=== PATIENT | male | born 1965 | race Caucasian/White ===

== ENCOUNTER 2023-11-21 07:01 | Emergency (ER) | payer BC, SELFPAY ==
[2023-11-21] VITALS (7 sets, daily range): BP systolic 127–154; BP diastolic 91–104; BMI 29.3
--- NOTE | 2023-11-21 07:32 | ED.GENMED ---
History of Present Illness
General
Chief Complaint: Alcohol Problem
Source: patient
Exam Limitations: none
Time Seen by Provider: 11/21/23 07:18
Nursing documentation reviewed up to this point in time: agreed with
Travel History
Have you had any contact with someone who has COVID-19?: No
Do you have any symptoms of coronavirus? Fever > 100 degrees, chills, cough, shortness of breath, sore throat, loss of taste or smell, muscle aches, or headache?: No
History of Present Illness
History of Present Illness:
Patient is a 57-year-old male who presents to the ER for evaluation. Patient reports he is coming to the ER for help. He admits to feeling very depressed anxious and reports he has been drinking alcohol every day. He started drinking alcohol
yesterday morning and believes he stopped around 2:[address] did drive himself to the hospital. He presents tearful anxious. He denies any suicidal thoughts presently. He is coming to the ER for help. He does have a history of hypertension
diabetes however has stopped taking his medication. He denies any history of withdrawal seizures in the past.
Past History
Past History
ED Past Medical History: Hypercholesterolemia and NIDDM
ED Past Surgical History: None
Social History
Tobacco: Former smoker
Alcohol: Former
Personal: Single
Living: alone
Review of Systems
Review of Systems
Allergies reviewed?: Yes
All Other Systems: ROS reviewed and negative except as documented in HPI and ROS
Constitutional: Reports no symptoms
Respiratory: Reports no symptoms
Cardiac: Reports no symptoms
ABD/GI: Reports nausea; Denies vomiting or diarrhea
: Reports no symptoms
Musculoskeletal: Reports no symptoms
Skin: Reports no symptoms
Neurological: Reports other (no seizures ); Denies dizzy, headache, weakness or numbness
Hematologic/Lymphatic: Reports no symptoms
Psychiatric: Reports depression and anxiety; Denies suicidal
Phy Exam
General Physical Exam
General Presentation: no apparent distress
General age: appears stated age
General Skin: warm and dry
General Habitus: normal
General Mental: anxious and tearful
General Hydration: dry mucous membranes
Cardiovascular Exam
Cardiovascular Exam: tachycardia
Pulmonary Exam
Pulmonary Exam: lungs clear and no respiratory distress
Neurological Exam
Neurological Exam: alert and oriented x3
Musculoskeletal Exam
Musculoskeletal Exam: full ROM
Skin Exam
Skin Exam: normal color and warm/dry
Psychiatric Exam
Psychiatric Exam: anxious
Scores
Withdrawal Assessment of Alcohol
Withdrawal Assessment Completed?: Not applicable
Course
Orders/Labs/Results
Orders:
Orders
11/21/23 07:48
Lorazepam [Ativan] 1 mg IV NOW STA
11/21/23 07:50
Alcohol Urgent
CMP [Comprehensive Metabolic Panel] Urgent
Complete Blood Count/With Diff Urgent
0.9% Sodium Chloride 1000 ml [Nss] 1,000 ml IV BOLUS
Ondansetron Injectable [Zofran] 4 mg IV NOW STA
11/21/23 08:50
Crisis Consult Urgent
Reason for Consult: depression /alcohol problem
Abnormal Lab Results
11/21/23
07:50
MCH 32.8 H pg
(27.0-31.0)
Neutrophils % 39.5 L %
(42.2-75.2)
Monocytes % 11.7 H %
(1.7-9.3)
Creatinine 0.6 L mg/dL
(0.7-1.3)
Glucose 224 H mg/dl
(70-99)
Alkaline Phosphatase 207 H U/L
(38-126)
11/21/23 07:50
11/21/23 07:50
Vital Signs
Initial and Last Documented VS:
Initial Vital Signs
Temp Pulse Resp BP Pulse Ox
98.0 F 121 18 140/104 98
11/21/23 07:11 11/21/23 07:11 11/21/23 07:11 11/21/23 07:11 11/21/23 07:11
Last Documented Vital Signs
Temp Pulse Resp BP Pulse Ox
98.4 F 108 20 143/98 100
11/21/23 11:47 11/21/23 11:47 11/21/23 11:47 11/21/23 11:47 11/21/23 11:47
Healthcare Customer Service consulted with Physician
Healthcare Customer Service consulted with physician?: Yes
Name of Physician Consulted: Esme
MDM/Problems Addressed
Differential Diagnosis Includes:
Not limited to anxiety depression alcohol use disorder, withdrawal
MDM/Problems Addressed:
Patient is a 49-year-old male who presented to the ER for evaluation. Patient requesting help for alcohol use. He drinks daily. He feels depressed and anxious but denies any suicidal thoughts. No prior history of withdrawal seizures. He
presents awake alert tearful anxious mildly tachycardic on arrival. Patient was given Ativan, fluids. Patient denies any recent fevers illness. He is afebrile here with a normal white count stable hemoglobin.
Blood sugar minimally elevated to 24. He was given fluids. He has a known diabetic but stopped his medication. He has normal kidney function normal sodium potassium. Alk phosphatase is elevated will need outpatient follow-up. To review this
with patient.
Alcohol level 153. Patient spoke with [id number] and agreeable to inpatient treatment
11:47: Patient discharged to go directly to inpatient alcohol rehab facility. Patient calm stable in no acute distress feeling better, HR decreased to 108 prior to discharge
*Pulse Oximetry
Patient hypoxic: no
*Critical Care Note
Total Time (30-74mins, 75-104mins- exclusive of procedures): Not Applicable
ED Attending Note
-
Portions of this chart may have been created with voice recognition software.� Occasional wrong word or��sound alike� substitutions may have occurred due to the inherent limitations of voice recognition software.
Discharge Plan
Departure
Patient Disposition: Home (Routine Discharge)
Date of Disposition: 11/21/23
Time of Disposition: 09:58
Patient with high blood pressure during this ER visit?: Yes
Covid-19: Not Applicable
Discharge Problem:
Alcohol use disorder
Instructions: Alcohol Use Disorder (DC), BLOOD PRESSURE
Prescriptions:
No Action
[id number] [Cortisporin] 10 ML solution
4 drp otic (ear) TID Qty: 10 0RF
Rx Instructions:
to the affected ear
levofloxacin 500 MG tablet
500 mg PO DAILY 7 Days 0RF
prednisone 20 mg tablet
40 mg PO DAILY Qty: 8 0RF
Referrals:
Duran Beth MD [Family Provider] -
Activity Restrictions/Additional Instructions:
You will be going directly to alcohol detox placement.
As discussed your labs are reviewed your sugar is minimally elevated you will need to be restarted on your diabetic medication and your alkaline phosphatase is elevated here in the ER this will need to be rechecked by your family doctor in the next
several days
Return if any worsening of symptoms.
Interventions
Interventions:
*Risk Screen - Suicide Last Done: 11/21/23 07:29
*General Assessment Last Done: 11/21/23 07:29
*Neglect/Abuse Screening Last Done: 11/21/23 07:29
ED- Fall Risk Assessment Last Done: 11/21/23 07:29
*ED COVID-19 Vaccine History Last Done: 11/21/23 07:11
*Nursing Disposition Last Done: 11/21/23 11:47
ED- Neurological Assessment Last Done: 11/21/23 07:29
ED-Psychological Assessment Last Done: 11/21/23 07:48
Discharge Date and Time
Discharge Date/Time: 11/21/23 11:45
Print Language: CROATIAN
[2023-11-21] MEDS: ATIVAN 1 MG IV (07:54)
[2023-11-21] MEDS: ZOFRAN 4 MG IV (07:54)
[2023-11-21] MEDS: NSS 1000 IV (07:55)
[2023-11-21 07:57] LABS: % Basophils 1.3 % (0-2); % Eosinophils 1.3 % (0-6); % Immature Granulocytes 0.2 % (0-0.5); % Monocytes 11.7 % (1.7-9.3); % Neutrophils 39.5 % (42.2-75.2); Absolute Basophils 0.1 10^3/uL (0-0.2); Absolute Eosinophils 0.1 10^3/uL (0-0.7); Absolute Lymphocytes 2.2 10^3/uL (1.2-3.4); Absolute Monocytes 0.6 10^3/uL (0.1-0.6); Absolute Neutrophils 1.9 10^3/uL (1.4-6.5); Hemoglobin 16.6 g/dL (13.0-18.0); Mean Corp Hgb Conc. 36.1 g/dL (33.0-37.0); Mean Corpuscular Hgb 32.8 pg (27.0-31.0); Mean Corpuscular Volume 90.9 fL (80.0-94.0); Mean Platelet Volume 8.6 fL (7.4-10.4); Nucleated Red Blood Cells % 0 % (-); Platelet Count 230 10^3/uL (130-400); Red Blood Cell Count 5.06 10^6/uL (4.70-6.10); Red Cell Dist. Width 14.1 % (11.5-14.5); White Blood Cell Count 4.8 10^3/uL (4.8-10.8)
[2023-11-21 08:09] LABS: ALT (SGPT) 21 U/L (0-50); AST (SGOT) 36 U/L (17-59); Albumin 4.2 g/dl (3.5-5.0); Alcohol 153 mg/dl; Alkaline Phosphatase 207 U/L (38-126); Blood Urea Nitrogen 10 mg/dl (9-20); Calcium 9.1 mg/dl (8.4-10.2); Carbon Dioxide 22 mmol/L (22-30); Chloride 99 mmol/L (98-107); Glucose 224 mg/dl (70-99); Potassium 4.1 mmol/L (3.5-5.1); Sodium 136 mmol/L (135-145); Total Protein 7.7 g/dl (6.3-8.2); eGFR > 60.00
--- NOTE | 2023-11-21 11:47 | EDRN ---
Reviewed discharge instructions with patient. Verbalized understanding. Ambulated to lobby with steady gait.
== END 2023-11-21 11:45 | disposition home or self-care (01) ==
LOC: EMR 07:01
PROVIDERS: EMERGENCY PHYSICIAN Emergency Medicine; FAMILY PHYSICIAN Family Medicine
DX: F10.10 Alcohol abuse, uncomplicated (principal); I10 Essential (primary) hypertension; Z87.891 Personal history of nicotine dependence; E11.9 Type 2 diabetes mellitus without complications
CPT/HCPCS: 99284; 96374; 96375; 96361; 80053; 82077; 85025

== ENCOUNTER 2023-12-21 21:07 | Inpatient (IN) | payer SELFPAY ==
[2023-12-21] VITALS (15 sets, daily range): BP systolic 130–153; BP diastolic 81–98; BMI 31.0; BMI 30.2
[2023-12-21 17:55] LABS: % Basophils 0.7 % (0-2); % Eosinophils 0.7 % (0-6); % Immature Granulocytes 1.7 % (0-0.5); % Lymphocytes 19.7 % (20.5-51.1); % Monocytes 11.3 % (1.7-9.3); % Neutrophils 65.9 % (42.2-75.2); Absolute Basophils 0.1 10^3/uL (0-0.2); Absolute Eosinophils 0.1 10^3/uL (0-0.7); Absolute Immature Granulocytes 0.2 10^3/uL (0-0.05); Absolute Lymphocytes 2.2 10^3/uL (1.2-3.4); Absolute Monocytes 1.3 10^3/uL (0.1-0.6); Absolute Neutrophils 7.4 10^3/uL (1.4-6.5); Hematocrit 45.7 % (39.0-52.0); Hemoglobin 16.9 g/dL (13.0-18.0); Mean Corpuscular Hgb 32.7 pg (27.0-31.0); Mean Corpuscular Volume 88.4 fL (80.0-94.0); Mean Platelet Volume 8.5 fL (7.4-10.4); Nucleated Red Blood Cells % 0 % (-); Platelet Count 240 10^3/uL (130-400); Red Blood Cell Count 5.17 10^6/uL (4.70-6.10); Red Cell Dist. Width 12.3 % (11.5-14.5); White Blood Cell Count 11.2 10^3/uL (4.8-10.8)
[2023-12-21 18:10] LABS: ALT (SGPT) 21 U/L (0-50); AST (SGOT) 26 U/L (17-59); Albumin 4.4 g/dl (3.5-5.0); Alcohol 67 mg/dl; Alkaline Phosphatase 147 U/L (38-126); Blood Urea Nitrogen 16 mg/dl (9-20); Calcium 8.8 mg/dl (8.4-10.2); Carbon Dioxide 12 mmol/L (22-30); Chloride 91 mmol/L (98-107); Glucose 251 mg/dl (70-99); Lipase 202 U/L (23-300); Potassium 4.3 mmol/L (3.5-5.1); Sodium 125 mmol/L (135-145); Total Protein 7.4 g/dl (6.3-8.2); eGFR > 60.00
[2023-12-21] MEDS: ATIVAN 1 MG IV ×2 (18:32→19:22)
--- NOTE | 2023-12-21 18:36 | ED.GENMED ---
History of Present Illness
General
Chief Complaint: Alcohol Problem
Source: patient
Exam Limitations: none
Time Seen by Provider: 12/21/23 18:36
Nursing documentation reviewed up to this point in time: agreed with
Travel History
Have you had any contact with someone who has COVID-19?: No
Do you have any symptoms of coronavirus? Fever > 100 degrees, chills, cough, shortness of breath, sore throat, loss of taste or smell, muscle aches, or headache?: No
History of Present Illness
History of Present Illness:
Patient is a 58-year-old male with history of hypertension high cholesterol diabetes alcohol abuse presents to the ER for evaluation. Patient reports he was in REHAB 11/21 for 7 d however left after being detoxed sooner than he was supposed to
leave. He has been drinking since. He last drank at 10 AM. His sister found out he was drinking again and brought him here to the ER. He complains of the shakes. He denies any hallucinations nausea vomiting.
He has no prior history of withdrawal seizures or hallucinations. Patient does admit to having history of anxiety. He admits to having had suicidal thoughts in the past but denies currently. He does not have a plan. He currently reports he quit
his job and does not have insurance.
Past History
Past History
ED Past Medical History: Hypercholesterolemia and NIDDM
ED Past Surgical History: None
Social History
Tobacco: Former smoker
Alcohol: Former
Personal: Single
Living: alone
Review of Systems
Review of Systems
Allergies reviewed?: Yes
All Other Systems: ROS reviewed and negative except as documented in HPI and ROS
Constitutional: Reports no symptoms and other (feels tremulous ); Denies fever, fatigue or chills
Respiratory: Reports no symptoms
Cardiac: Reports no symptoms
ABD/GI: Reports no symptoms
Musculoskeletal: Reports no symptoms
Skin: Reports no symptoms
Neurological: Reports no symptoms
Psychiatric: Reports anxiety
Phy Exam
General Physical Exam
General Presentation: no apparent distress
General age: appears stated age
General Skin: warm and dry
General Habitus: normal
General Mental: alert
General Hydration: appears well hydrated
Cardiovascular Exam
Cardiovascular Exam: tachycardia
Pulmonary Exam
Pulmonary Exam: lungs clear and no respiratory distress
Neurological Exam
Neurological Exam: alert and oriented x3
Musculoskeletal Exam
Musculoskeletal Exam: full ROM
Skin Exam
Skin Exam: normal color
Psychiatric Exam
Psychiatric Exam: anxious
Scores
Withdrawal Assessment of Alcohol
Withdrawal Assessment Completed?: Not applicable
Course
Orders/Labs/Results
Orders:
Orders
12/21/23 17:44
Electrocardiogram (*1) Urgent
Reason for Study: Tachycardia
EKG- Treatment ONCE
12/21/23 17:48
Alcohol Urgent
Complete Blood Count/With Diff Urgent
Comprehensive Metabolic Panel Urgent
Glycohemoglobin (HgbA1c) Urgent
Lipase Urgent
12/21/23 18:31
Lorazepam [Ativan] 1 mg IV NOW STA
Lorazepam [Ativan] 2 mg .ROUTE .STK-MED ONE
12/21/23 19:10
0.9% Sodium Chloride 1000 ml [Nss] 1,000 ml IV BOLUS
Lorazepam [Ativan] 1 mg IV NOW STA
12/21/23 19:42
Ethylene Glycol [S] Urgent
Methyl Alcohol (Methanol) [S] Urgent
Osmolality, Random Urine Urgent
Date Specimen was Collected: 12/21/23
Time Specimen was Collected: 19:32
Serum Osmolality Urgent
Urine Sodium Urgent
Date Specimen was Collected: 12/21/23
Time Specimen was Collected: 19:32
Venous Blood Gas Urgent
%Oxygen/Room Air: 97
12/21/23 20:51
Admit/Transfer Patient As Directed
Co-Sign Provider:
Level of Care: Inpatient admission
Assign to:: ICU
Physician / Group: Alfred
Diagnosis: Alcohol Withdrawal, Anion Gap Metabolic Acidosis
Reason for Hospitalization: Alcohol Withdrawal, Anion Gap Metabolic Acidosis
Expected length of stay greater than two midnights?: Yes
ELOS- Estimated Length of Stay in days: 3
I certify the patient meets the requirements for IP care: Yes
Code Status As Directed
Resuscitation Status: Full Code
12/21/23 20:56
Insulin Human Regular [Novolin R] See Protocol IV NOW STA
Pharmacy Request to Place See Dose Instructions PO NOW STA
12/21/23 21:38
0.9% Sodium Chloride 1000 ml [Nss] 1,000 ml IV 125 mls/hr
0.9% Sodium Chloride [Nss (Preservative Free)] See Protocol IV PRN PRN
Acetaminophen [Tylenol] 650 mg PO Q4HPRN PRN
Dextrose 50%-Water [Dextrose 50% Syringe] 12.5 grams IV [id number] PRN
FOLic ACID [Folvite] 1 mg 0.9% Sodium Chloride 50 ml [Nss] 50 ml IV DAILYPRN
Lorazepam [Ativan] 1 mg IV Q1HPRN PRN
Lorazepam [Ativan] 1 mg PO Q2HPRN PRN
Lorazepam [Ativan] 2 mg IV Q1HPRN PRN
Ondansetron Injectable [Zofran] 4 mg IV Q6HPRN PRN
Reg Insulin 100 Units/100 ml [Novolin R Insulin Infusion] 100 units in 100 ml IV PER PROTOCOL
Thiamine HCl [Vitamin B1] 100 mg PO BID
12/21/23 21:38
Case Management Consult Once
Case Management Consult: Other
Comment: Substance abuse counseling
DIETARY CONSULT Routine
Reason for Consult: Nutrition support, possible refeeding guidelines
Diabetes Management by Nurse Practitioner Routine
Consulting Provider: Samantha Morel
Was provider already notified?: No
Reason for Consult: Insulin Management
B-Hydroxybutyrate Urgent
TSH Reflex To Free T4 Routine
Urinalysis Routine
Urine Drug Abuse Screen Routine
Activity As Directed
Activity Level: Bedrest
Bedside Glucose Monitoring As Directed
Frequency: Other frequency
Other frequency: per Critical Care Glycemic Protocol for infusion of IV Regular Insulin
Bladder Scan As Directed
Follow Bladder Retention/Intermittent Cath Algorithm?: Yes
PRN if no void in __ hours: 6
Frequency: Per Retention Algorithm
If Bladder Scan Result >: 400
then:: Straight cath
Critical Care Glycemic Protocol for IV Regular Insulin As Directed
EKG with chest pain [ECG as needed] As Directed
ECG as needed for:: Chest Pain
I/O [Intake/ Output] As Directed
Frequency: Per unit guidelines
MSAS SCORE As Directed
MSAS Score 0-4: Repeat MSAS every 2 hours until 0-4 for three consecutive assessments, then every 4 hours x 48
hours.
MSAS Score 5-7: For MILD withdrawl symptoms. Repeat MSAS and RASS every 2 hours
MSAS Score 8-11: For MODERATE withdrawal symptoms. Repeat MSAS and RASS every 1 hour. Consider ICU or IMU
level of care.
MSAS Score > 11: For SEVERE withdrawal symptoms. Repeat MSAS and RASS every 1 hour. Notify provider, consider
ICU level of care.
MSAS Additional Instructions: If no improvement or no decrease in score from severe to moderate within 12
hours, consult psychiatry
MSAS Notify Provider: Notify provider if patient requires more than 10 mg of Lorazepam in eight hour period.
Neurological Checks As Directed
Frequency: q4h
Pneumatic Compression Sleeves As Directed
Type: Knee high
Precautions As Directed
Type of Precautions: Seizure
Straight Cath As Directed
Frequency: Per Retention Algorithm
Additional Instructions: straight cath as needed per acute urinary retention algorithm for 24 hrs
Additional Instructions: for bladder scan greater than 400 mL
Vital Signs As Directed
Frequency: Per unit guidelines
Weight As Directed
Frequency: Daily
Oxygen Therapy [O2 Therapy] [RESP] Routine
Titrate/Wean O2 to maintain O2 sat greater than (%): 94
DX Deep Vein Thrombosis Video Routine
12/22/23 00:00
Thiamine Injection 200 mg IV Q8
12/22/23 Breakfast
NPO
Allow oral meds: Yes
Allow clear liquids: Sips of Clears
Basic Metabolic Panel IN AM
Complete Blood Count/No Diff IN AM
Magnesium IN AM
Phosphorus IN AM
12/22/23 07:30
Insulin Aspart Pen [Novolog Flexpen] See Protocol SC AC
12/22/23 08:00
FOLic ACID [Folvite] 1 mg PO DAILY
Phenobarbital Sodium [Phenobarbital] 97.5 mg IV TID
12/22/23 18:00
Enoxaparin Sodium [Lovenox] 40 mg SC QPM
12/24/23 08:00
Phenobarbital [Luminal] 64.8 mg PO TID
12/26/23 08:00
Phenobarbital [Luminal] 32.4 mg PO TID
Abnormal Lab Results
12/21/23 12/21/23
17:48 19:42
WBC 11.2 H 10^3/uL
(4.8-10.8)
MCH 32.7 H pg
(27.0-31.0)
Abs Immat Gran (auto) 0.2 H 10^3/uL
(0-0.05)
Absolute Neuts (auto) 7.4 H 10^3/uL
(1.4-6.5)
Absolute Monos (auto) 1.3 H 10^3/uL
(0.1-0.6)
Immature Gran % 1.7 H %
(0-0.5)
Lymphocytes % 19.7 L %
(20.5-51.1)
Monocytes % 11.3 H %
(1.7-9.3)
VBG pCO2 31 L mmHg
(35-48)
VBG pO2 144 H mmHg
(30-50)
VBG HCO3 20.6 L mmol/L
(22-27)
Sodium 125 L mmol/L
(135-145)
Chloride 91 L mmol/L
(98-107)
Carbon Dioxide 12 L* mmol/L
(22-30)
Creatinine 0.6 L mg/dL
(0.7-1.3)
Glucose 251 H mg/dl
(70-99)
Alkaline Phosphatase 147 H U/L
(38-126)
Urine Sodium 116 H mmol/L
(30-90)
12/21/23 17:48
12/21/23 17:48
Vital Signs
Initial and Last Documented VS:
Initial Vital Signs
Temp Pulse Resp BP Pulse Ox
97.4 F 134 18 130/84 97
12/21/23 17:40 12/21/23 17:40 12/21/23 17:40 12/21/23 17:40 12/21/23 17:40
Last Documented Vital Signs
Temp Pulse Resp BP Pulse Ox
97.8 F 119 18 149/86 95
12/21/23 21:53 12/21/23 22:15 12/21/23 22:15 12/21/23 22:15 12/21/23 22:15
Traffic Signal Repairer consulted with Physician
Traffic Signal Repairer consulted with physician?: Yes
Name of Physician Consulted: evon
MDM/Problems Addressed
MDM/Problems Addressed:
Patient is a 58-year-old male who presents to the ER for evaluation. Patient w/ alcohol use disorder . Patient has been drinking daily and had a last drink today at 10 AM. He was brought to the ER by sister. He does again request detox however
he presents tachycardic and anxious. He has never had any history of withdrawal seizures but is anxious tachycardic very minimally tremulous here in the ER. Patient was given Ativan. Patient is afebrile no recent fever or illness. His white
count is 11.2 his sodium however is low at 125 with a bicarb low at 12. Patient had metabolic acidosis. Patient was given fluids and Ativan patient will require admission.
Chronic conditions affecting care:
Diabetes rheumatoid arthritis chronic alcohol use disorder
*Pulse Oximetry
Patient hypoxic: no
*EKG
Rhythm: sinus tachycardia
Ischemia: no ischemia
*Critical Care Note
Total Time (30-74mins, 75-104mins- exclusive of procedures): Not Applicable
ED Attending Note
-
Portions of this chart may have been created with voice recognition software.� Occasional wrong word or��sound alike� substitutions may have occurred due to the inherent limitations of voice recognition software.
Discharge Plan
Departure
Patient Disposition: Admit
Date of Disposition: 12/21/23
Time of Disposition: :24
Admit to: Telemetry
Admit to doctor: hospitalist
Presentation/result/management discussed w/ accepting MD/DO: Hospitalist
Patient with high blood pressure during this ER visit?: Yes
Condition: Fair
Covid-19: Not Applicable
Discharge Problem:
alcoholic metabolic acidosis
Interventions
Interventions:
*Risk Screen - Suicide Last Done: 12/21/23 18:21
*General Assessment Last Done: 12/21/23 18:20
*Neglect/Abuse Screening Last Done: 12/21/23 18:21
*ED COVID-19 Vaccine History Last Done: 12/21/23 17:40
*Nursing Disposition Last Done: 12/21/23 21:42
ED- Neurological Assessment Last Done: 12/21/23 18:41
ED-Psychological Assessment Last Done: 12/21/23 18:41
Discharge Date and Time
Discharge Date/Time: 12/21/23 21:31
[2023-12-21] MEDS: NSS 1000 IV ×2 (19:21→22:13)
[2023-12-21 19:52] LABS: Venous Blood Gas B.E. -2.5 mmol/L (-4 to +4); Venous Blood Gas HCO3 20.6 mmol/L (22-27); Venous Blood Gas O2 Sat % 99.4 %; Venous Blood Gas pCO2 31 mmHg (35-48); Venous Blood Gas pH 7.43 (7.32-7.43); Venous Blood Gas pO2 144 mmHg (30-50)
[2023-12-21 20:01] LABS: Osmolality Urine 860 mOsm/kg (300-900)
[2023-12-21 20:16] LABS: Osmolality Serum 284 mOsm/kg (275-300)
[2023-12-21 20:18] LABS: Urine Sodium 116 mmol/L (30-90)
--- NOTE | 2023-12-21 20:57 | HPS.HSE ---
Family Physician
-
Family Physician: Baltazar Landin
Chief Complaint
-
Alcohol Withdrawal
History of Present Illness
Patient is a 58y M with PMH significant for hypertension, DM-II and alcohol use disorder who presents to ED complaining of alcohol withdrawal symptoms. Patient states that he was seen in the ED about one month ago with similar complaints and was
discharged to a rehab center. He stayed there for 7 days and then signed out voluntarily. He began drinking again about 3 days later. Patient notes intake of about 1/5 of bourbon daily. His last drink was this AM around 10 AM.
This afternoon he began to develop shaking / tremulousness, anxiety and SOB. His family intervened and patient was brought to the ED for further evaluation.
Patient denies any recent illness, fevers, cough, etc.
Note: Patient was diagnosed with rheumatoid arthritis a few months ago and was recently started on monthly Simponi infusions. Has had two doses thus far.
Medical History
Past Medical History
Past Medical History: Reports Other
Additional Past Medical History:
Hypertension
DM-II
Dyslipidemia
Obesity
Alcohol Use Disorder
Rheumatoid Arthritis
Past Surgical History: Reports None and Other
Social History
Tobacco: Former Smoker (Quit smoking 20 years ago. Approx 15 pack years total use.)
Alcohol: Daily (1/5 bourbon daily.)
Drug: None
Family History
Family History: Other (Father: CAD, Prostate Cancer)
Allergies / Home Medications
Allergies reflects when Allergies were last updated in [facility].
Home Medications with original date entered in [facility]
Allergy/Medication List:
Allergies
Allergy/AdvReac Type Severity Reaction Status Date / Time
No Known Allergies Allergy Verified 12/21/23 17:43
Home Medications
amlodipine 10 mg tablet 10 mg PO DAILY 12/21/23
atorvastatin 20 mg tablet 20 mg PO DAILY 12/21/23
golimumab 50 mg/0.5 mL subcutaneous syringe (Simponi) 50 mg SC QMONTH 12/21/23
hydroxyzine HCl 25 mg tablet 25 mg PO TID PRN itching 12/21/23
lisinopril 20 mg tablet 20 mg PO DAILY 12/21/23
metformin 500 mg tablet 500 mg PO BIDWMEAL 12/21/23
Review of Systems
-
History Source: Patient
Constitutional: Reports Fatigue and Chills; Denies Fever
EENT: Denies Sore Throat
Respiratory: Reports Trouble Breathing; Denies Cough
Cardiac: Denies Chest Pain or Palpitations
Abdomen/GI: Reports Nausea; Denies Abdominal Pain, Vomiting, Diarrhea, Constipated, Bloody Stools, Black Stools or Anorexia
: Denies Dysuria, Frequency or Flank Pain
Musculoskeletal: Denies Joint Pain or Edema
Neurological: Reports Headache; Denies Dizzy
Psych: Reports Anxiety; Denies Depression
Physical Exam
Vital Signs
Vital Signs
Temp Pulse Resp BP Pulse Ox
97.7 F 123 23 135/91 97
12/21/23 18:22 12/21/23 20:45 12/21/23 20:45 12/21/23 20:30 12/21/23 20:45
Physical Exam
General: Other (58y M in mild distress due to anxiety.)
HEENT: Moist mucous membranes, PERRLA and Other (Injected sclerae bilaterally. )
Respiratory: Clear; No Wheezes, Rales or Rhonchi
Cardiac: S1/S2 and Tachycardia; No Murmur
GI: Soft, Non Tender, Non Distended and Normal Bowel Sounds
Musculoskeletal: No Clubbing, No Cyanosis and No Edema
Neuro: AO x 3 and Other (Mild tremulousness. No focal abnormalities.)
Psych: Anxious
Laboratory Results
-
12/21/23 17:48
12/21/23 17:48
Laboratory Results
Total Bilirubin 1.0 mg/dl (0.2-1.3) 12/21/23 17:48
AST 26 U/L (17-59) 12/21/23 17:48
ALT 21 U/L (0-50) 12/21/23 17:48
Alkaline Phosphatase 147 U/L (38-126) H 12/21/23 17:48
Lipase 202 U/L (23-300) 12/21/23 17:48
Impression/Plan
-
A/P: Patient is a 58y M with PMH significant for HTN, DM-II and alcohol use disorder who presents to ED for evaluation / treatment of alcohol withdrawal symptoms.
Alcohol Use Disorder
Acute Alcohol Withdrawal
- Admit for further evaluation and treatment.
- Will begin phenobarbital taper given high risk / current withdrawal symptoms.
- Follow MSAS / monitor for clinical improvement.
- Monitor labs / lytes and replace as needed.
- CM evaluation for possible rehab placement on discharge.
Anion Gap Metabolic Acidosis
- Initial anion gap is 22 on admission with possible contributing factors being lactic acidosis, alcoholic ketoacidosis or diabetic ketoacidosis.
- Glucose is 250, patient is on oral metformin and alcohol overuse is as noted above.
- IVF support. Hold further metformin for now.
- IV insulin infusion with glycemic protocol and titrate as needed.
- Follow for improvement in anion gap.
- Address other electrolyte abnormalities as needed.
Hyponatremia
- Na = 125 with hyperglycemia, alcohol withdrawal and anion gap metabolic acidosis.
- IVF support and follow for changes in Na levels.
- Urine studies noted.
- Consider Nephrology evaluation if Na levels do not improve with fluid management.
DM-II
- Uncontrolled. Hyperglycemia +/- degree of DKA as noted above.
- IV insulin infusion for now - transition to subcut regimen when appropriate.
- Hold PO medications / metformin acutely.
- Update A1C.
Benign Hypertension
- Stable. Hold amlodipine, lisinopril acutely.
- Resume if needed for BP control.
Rheumatoid Arthritis
- Stable. Joint pains / inflammation markedly improved since beginning Simponi.
- Doubt that new med has much to do with current presentation.
- Follow for any new / worsening symptoms.
DVT Prophylaxis: Lovenox
Code Status: Full
[2023-12-21 21:25] LABS: Glucose - Point of Care 156 mg/dl (70-99)
[2023-12-21] MEDS: NOVOLIN R 3 UNITS IV (21:27)
[2023-12-21] MEDS: PHENOBARBITAL 104 MG IV (22:13)
[2023-12-21 22:22] LABS: Glucose - Point of Care 129 mg/dl (70-99)
[2023-12-21] MEDS: THIAMINE INJECTION 200 MG IV (23:02)
[2023-12-21 23:14] LABS: Glucose - Point of Care 152 mg/dl (70-99)
[2023-12-21] MEDS: MELATONIN 5 MG PO (23:47)
[2023-12-21] MEDS: PHATP 1 UNIT PO (23:47)
[2023-12-22] VITALS (19 sets, daily range): BP systolic 100–167; BP diastolic 71–106; BMI 30.6
[2023-12-22 00:14] LABS: Blood Urea Nitrogen 17 mg/dl (9-20); Calcium 8.2 mg/dl (8.4-10.2); Carbon Dioxide 23 mmol/L (22-30); Chloride 93 mmol/L (98-107); Estimated Creatinine Clearance > 125 ml/min; Glucose 152 mg/dl (70-99); Potassium 4.3 mmol/L (3.5-5.1); Sodium 122 mmol/L (135-145); eGFR > 60.00
[2023-12-22 00:20] LABS: B-Hydroxybutyrate 0.34 mmol/L (0.02-0.27)
--- NOTE | 2023-12-22 00:22 | PTCARENOTE ---
Received pt from ED to ICU [id number]. AAOx3. Mild tremors noted. No complaints of pain. MSAS ongoing (3-4 at this time). ST on tele, HR 100s-110s. BP 130s-140s/80s. Lungs CTA. Round abd, + bowel sounds. Voiding in urinal. Skin c/d/i. #18 L FA and #20 R
FA patent. NS @ 125ml/hr per orders.
On admission, pt admitted to suicidal ideation over past 2 weeks. 1:1 initiated. Pt. calm, pleasant at this time. Resting.
Upon admission, pt ordered insulin gtt for glycemic protocol. Verified with GREG Mary to start gtt. When trying to calculate dosage for gtt in worklist under glycemic protocol, unable to get starting rate unless BG >180. BG at this time = 152.
PROSTHETIC DENTIST notified. Orders to hold insulin gtt. It was never started. Continue to NS @ 125ml/hr, follow lab work & obtain BG q2hrs.
[2023-12-22 00:28] LABS: Urine Albumin Negative (Neg - Trace); Urine Bilirubin Negative (Negative); Urine Character Clear (Clear); Urine Color Yellow; Urine Glucose 3+ (Negative); Urine Ketone 3+ (Negative); Urine Leukocyte Negative (Negative); Urine Nitrite Negative (Negative); Urine Occult Blood Negative (Negative); Urine Specific Gravity 1.025 (<1.030); Urine Urobilinogen Negative (Neg - 1+)
[2023-12-22 00:45] LABS: TSH Reflex To Free T4 2.53 uIU/ml (0.47-4.68)
[2023-12-22 00:48] LABS: Benzodiazepines Positive (Negative)
[2023-12-22 00:49] LABS: Amphetamines Negative (Negative); Barbiturates Positive (Negative); Buprenorphine Negative (Negative); Cocaine Negative (Negative); Marijuana Negative (Negative); Methadone Negative (Negative); Methamphetamines Negative (Negative); Opiates Negative (Negative); Phencyclidine Negative (Negative); Tricyclic Antidepressants Negative (Negative)
--- NOTE | 2023-12-22 01:13 | W.PN.UPDATE ---
Update Note
Progress Note Update
12/21/23
2344- Patient's repeat blood sugar 129 & 152. Discussed with Dr. Simon hospitalist, critical care glycemic scale vs sliding scale and resuscitation with fluids vs DKA insulin gtt and protocol; for now following bedside glucose point of care testing
and serial q4h BMP. Anion Gap Metabolic Acidosis possible contributing factors being: lactic acidosis, alcoholic ketoacidosis or diabetic ketoacidosis. Will not initiate insulin gtt for now, in favor of starting sliding scale insulin and IVF
resuscitation for alcoholic ketosis.
2400- BMP anion gap calculation is 6.0 (down from 22), improvement in bicarb, continues with hyponatremia will continue NSS infusion and watch sodium, continue with q4h BMP serial labs and trend/monitor bedside blood sugars.
[2023-12-22 01:17] LABS: Fentanyl, Urine Negative (Negative)
[2023-12-22 02:10] LABS: Glucose - Point of Care 146 mg/dl (70-99)
[2023-12-22] MEDS: TUMS EX (EXTRA STRENGTH) CHEWABLE 2 TABLET PO (03:28)
[2023-12-22 04:04] LABS: Hematocrit 37.6 % (39.0-52.0); Hemoglobin 13.7 g/dL (13.0-18.0); Mean Corp Hgb Conc. 36.4 g/dL (33.0-37.0); Mean Corpuscular Hgb 32.4 pg (27.0-31.0); Mean Corpuscular Volume 88.9 fL (80.0-94.0); Mean Platelet Volume 8.5 fL (7.4-10.4); Platelet Count 180 10^3/uL (130-400); Red Blood Cell Count 4.23 10^6/uL (4.70-6.10); Red Cell Dist. Width 12.6 % (11.5-14.5); White Blood Cell Count 9.4 10^3/uL (4.8-10.8)
[2023-12-22 04:29] LABS: APTT 22.5 Sec (23.4-35.0); Blood Urea Nitrogen 17 mg/dl (9-20); Calcium 8.1 mg/dl (8.4-10.2); Carbon Dioxide 23 mmol/L (22-30); Chloride 91 mmol/L (98-107); Estimated Creatinine Clearance > 125 ml/min; Glucose 170 mg/dl (70-99); Magnesium 1.6 mg/dl (1.6-2.3); Phosphorus 3.6 mg/dl (2.5-4.5); Potassium 4.4 mmol/L (3.5-5.1); Sodium 125 mmol/L (135-145); eGFR > 60.00
[2023-12-22] MEDS: ATIVAN 1 MG IV (05:05)
[2023-12-22] MEDS: NSS (PRESERVATIVE FREE) 0.5 ML IV (05:05)
[2023-12-22] MEDS: ZOFRAN 4 MG IV (05:05)
[2023-12-22] MEDS: NSS 1000 IV (05:09)
--- NOTE | 2023-12-22 05:48 | PTCARENOTE ---
MSAS 2-3 overnight. Pt. only complaint is recurrent hiccups. He was unsure if it was reflux related so tums ordered but did not provide relief. Also having mild nausea- zofran given. 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
effects r/t ETOH use. Pt. wanted to go for a short walk so he ambulated around unit without difficulty. NS @ 125ml/hr continues. Repeat labs drawn. 1:1 ongoing
[2023-12-22 06:10] LABS: Glucose - Point of Care 157 mg/dl (70-99)
[2023-12-22] MEDS: MAGNESIUM SULFATE 102 GRAMS IV (06:36)
--- NOTE | 2023-12-22 07:06 | CON.INTV ---
Consultation
Consultation Request
Date/Time Consultation Requested: 12/22/2023-7 AM
Date/Time Consultation Performed: 12/22/2023-7 AM
Requesting Provider: Hospitalist
Performing Provider: Dr. Benavides
Reason for Consultation: Alcohol withdrawal, critical care management
Medical History
-
Chief Complaint: Alcohol withdrawal
History of Present Illness:
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
consulted for alcohol withdrawal/critical care management 12/22/2023. He currently denies any shortness of breath, chest congestion, chest pain, hemoptysis, abdominal pain, nausea, vomiting, weakness or lower extremity swelling. He feels like he is
going through withdrawals like he did before. He regrets leaving alcohol rehab early. He states it is very hard to quit drinking. He quit smoking much easier.
Past Medical History
Past Medical History: None (Hypertension. Diabetes. Rheumatoid arthritis. Alcohol use disorder. Obesity.)
Social History
Tobacco: Former Smoker (30+ pack year smoker-2 to 3 packs until 39 years old)
Alcohol: Daily (10/05)
Drug: None
Living: With Family
Occupational Exposures: No known asbestos exposure
Environmental Exposures: No known tuberculosis exposure
Family History
Family History: Other (Father-CAD and prostate cancer)
Allergies / Home Medications
Allergies
Allergy/AdvReac Type Severity Reaction Status Date / Time
No Known Allergies Allergy Verified 12/21/23 17:43
Home Medications
Medication Instructions Recorded Confirmed Last Taken Type
amlodipine 10 mg tablet 10 mg PO DAILY 12/21/23 12/21/23 Unknown History
atorvastatin 20 mg tablet 20 mg PO DAILY 12/21/23 12/21/23 Unknown History
golimumab 50 mg/0.5 mL 50 mg SC QMONTH 12/21/23 12/21/23 Unknown History
subcutaneous syringe (Simponi)
hydroxyzine HCl 25 mg tablet 25 mg PO TID PRN itching 12/21/23 12/21/23 Unknown History
lisinopril 20 mg tablet 20 mg PO DAILY 12/21/23 12/21/23 Unknown History
metformin 500 mg tablet 500 mg PO BIDWMEAL 12/21/23 12/21/23 Unknown History
Review of Systems
-
Unable to Obtain full review of systems at this time due to: Other (Per HPI)
Vitals / Labs / Diagnostic Testing
Vital Signs
Temp Pulse Resp BP Pulse Ox
97.6 F 100 16 167/91 91
12/22/23 03:30 12/22/23 06:00 12/22/23 06:00 12/22/23 06:00 12/22/23 04:00
Lab Data
12/22/23 03:53
Laboratory Results
12/22/23
03:53
PT 14.0
INR 1.10
APTT 22.5 L
Diagnostic Testing:
Physical Exam
-
Exam:
Well-nourished and well-developed in no apparent distress
HEENT-atraumatic, normocephalic
Neck-supple, no JVD, no bruit
Heart-regular rate and rhythm-no murmurs, rubs or gallops
Chest-clear to auscultation, no wheezes, crackles
Back-no tenderness
Abdomen-soft, nontender, nondistended, no hepatosplenomegaly
Extremities-no cyanosis, clubbing, edema and good peripheral pulses
Integument-intact, no rashes, lesions or ecchymosis
Neurology-alert and oriented, nonfocal motor and sensory exam
Assessment
-
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
consulted for alcohol withdrawal/critical care management 12/22/2023.
Alcohol use disorder with alcohol withdrawal
Anion gap metabolic acidosis
Hyperglycemia
Hyponatremia
Mild leukocytosis
Hypocalcemia
UDS positive barbiturates and benzodiazepines-receiving
Conditions present prior to admission:
Hypertension.
Diabetes.
Rheumatoid arthritis.
Alcohol use disorder.
Former [id number]-year quit 20 years ago
Obesity.
Plan
Patient will be admitted to medical intensive care unit with alcohol intoxication and significant risk for alcohol withdrawal syndrome
Supplemental oxygen as needed
Aspiration precautions
Incentive spirometry
Head of bed elevation
Follow MSAS
Alcohol withdrawal treatment protocol will continue
Supplements glucose and thiamine to prevent Wernicke's encephalopathy
Supplement multivitamins and folate
Replete deficiencies and glucose, potassium, magnesium and phosphorus
Benzodiazepines as needed-diazepam or lorazepam
Precedex drip if needed
Phenobarbital protocol initiated
Alcohol cessation counseling
Consider psychiatry evaluation
Consider rehabilitation
Monitor electrolytes and replace as needed
Monitor blood sugar
Insulin supplementation as needed
DVT prophylaxis
GI prophylaxis
Early nutrition
Early mobilization
Critical care statement: A total of 50 minutes of critical care time was provided for this patient today. This includes management of unstable vital signs, treatment for and prevention of alcohol withdrawal, evaluation of the patient at bedside,
reviewing the patient's pertinent medical records including radiographs, microbiology, laboratory evaluations, and discussion with primary team, consultants, pharmacy, nutrition, physical therapy, case management, charge nurse, critical care
nursing, and respiratory therapy.
Diagnostic data:
Chest x-ray 12/21/2023-NAD
Data Reviewed
-
EKG: Report reviewed by me
Radiology: Report reviewed by me
Medical Tests (Nuc Med, Echo etc): Report reviewed by me
Labs: Labs reviewed by me
Old Records: Reviewed
Critical Care Time (in minutes): 50
[2023-12-22] MEDS: PHENOBARBITAL 97.5 MG IV ×3 (07:35→21:05)
[2023-12-22] MEDS: PROTONIX IV 40 MG IV (07:36)
[2023-12-22] MEDS: NSS (PRESERVATIVE FREE) 10 ML IV (07:36)
--- NOTE | 2023-12-22 07:36 | W.PN.HOSP.TC ---
Today's Communication/Plan
-
Continue treating alcohol withdrawal
Resume diet
Baclofen
Await repeat labs
Fluid restriction
Assessment / Plan
Assessment / Plan
Gen-AAOx3, NAD
HEENT-NC, AT, anicteric, clear oral mm
Neck-supple
CV-reg, no M, +S1/S2
Lungs-clear B/L
Abd-soft, NT, ND
Ext-no edema
Musculoskeletal-no cyanosis, clubbing
Skin-warm and dry
Neuro-grossly non-focal
Psych-calm, cooperative
Acute alcohol intoxication -resolved.
Acute alcohol withdrawal syndrome -continue supportive care. Phenobarbital taper. Lorazepam as needed. Continue vitamins. Ideally needs to go back to rehab. Social work to assist.
High anion gap metabolic acidosis -resolved. Suspect mostly due to alcoholic ketoacidosis. Anion gap normalized. Bicarb normal. Doubt DKA.
Hyponatremia -likely due to alcohol abuse. Urine osmolality 860, urine sodium 116, consistent with excess ADH. Fluid restriction. Repeat sodium pending. May need 3% saline, may need nephrology consult if hyponatremia does not improve.
Intractable hiccups -will start baclofen 3 times daily 5 mg. Can titrate upwards for response.
DM 2 with hyperglycemia -hemoglobin A1c pending. On metformin at home. Continue sliding scale insulin for now.
Hyperlipidemia -on atorvastatin.
Essential hypertension -blood pressure elevated likely due to acute alcohol withdrawal. Continue amlodipine, lisinopril.
Rheumatoid arthritis -on monthly Golimumab. Controlled.
Obesity due to excess calories
Full code
Anticipated Discharge: > 48 hours
Subjective/Interval History
-
Date of Service: December 22, 2023
Patient seen and examined. Complaining of hiccups.
Objective Data
-
Labs:
Laboratory Results
12/21/23 12/22/23 12/22/23
23:51 03:53 03:59
WBC 9.4
Hgb 13.7
Hct 37.6 L
Plt Count 180 D
PT 14.0
INR 1.10
APTT 22.5 L
Sodium 122 L 125 L Cancelled
Potassium 4.3 4.4 Cancelled
Chloride 93 L 91 L Cancelled
Carbon Dioxide 23 23 Cancelled
BUN 17 17 Cancelled
Creatinine 0.4 L 0.4 L Cancelled
Glucose 152 H 170 H Cancelled
Calcium 8.2 L 8.1 L Cancelled
12/22/23 12/22/23 12/22/23
07:59 11:59 15:59
WBC
Hgb
Hct
Plt Count
PT
INR
APTT
Sodium Pending Pending Pending
Potassium Pending Pending Pending
Chloride Pending Pending Pending
Carbon Dioxide Pending Pending Pending
BUN Pending Pending Pending
Creatinine Pending Pending Pending
Glucose Pending Pending Pending
Calcium Pending Pending Pending
12/22/23 12/22/23
19:59 23:59
WBC
Hgb
Hct
Plt Count
PT
INR
APTT
Sodium Pending Pending
Potassium Pending Pending
Chloride Pending Pending
Carbon Dioxide Pending Pending
BUN Pending Pending
Creatinine Pending Pending
Glucose Pending Pending
Calcium Pending Pending
Vital Signs:
Vital Signs
Temp Pulse Resp BP Pulse Ox
97.6 F 100 16 167/91 91
12/22/23 03:30 12/22/23 06:00 12/22/23 06:00 12/22/23 06:00 12/22/23 04:00
I&O
12/21/23 12/22/23 12/23/23
06:59 06:59 06:59
Intake Total 1125 / 1125
Output Total 200 / 200
Balance 925 / 925
Review of Systems
-
History Source: Patient
All other systems: Reviewed and negative
[2023-12-22] MEDS: THIAMINE INJECTION 200 MG IV ×2 (07:42→16:02)
[2023-12-22] MEDS: FOLVITE 1 MG PO (07:46)
[2023-12-22] MEDS: LIORESAL 5 MG PO ×3 (08:13→21:05)
[2023-12-22 08:19] LABS: Glucose - Point of Care 152 mg/dl (70-99)
[2023-12-22] MEDS: NOVOLOG FLEXPEN-LOW RESISTANCE 1 UNITS SC ×2 (08:41→18:00)
[2023-12-22] MEDS: SODIUM CHLORIDE 3% 250 IV ×2 (08:41→23:16)
[2023-12-22 08:43] LABS: Glycohemoglobin (HgbA1c) 8.4 % (4.0-5.6)
--- NOTE | 2023-12-22 09:25 | PTCARENOTE ---
Patient received this am. Patient is alert and oriented x3. Pleasant and cooperative. Patient states he has passive suicidal ideations at this time. Denies current plan and intent. States he is feeling more hopeful since coming to the hospital. He
is looking forwared to getting treatment for his alcohol use and admits he needs to be more committed than last treatment. Pt states his father in August and that has been a stressor for him. Pt having very frequent hiccups. States it is
difficult to sleep because of hiccups. Denies SOB, nausea, vomiting and pain. States his legs are weak from laying around but gait is steady. Ambulating to bathroom to urinate with assistance
--- NOTE | 2023-12-22 11:55 | CM ---
Addendum entered by Odalys Buckley 12/22/23 13:04:
TC back from [place], she attempted contact with the patient, no answer.
Mary spoke with the RN on floor and got an update.
Faxed facesheet to Mary/JAY at F# [phone] and F# [phone].
Misael from [facility] should be out to see patient this evening.
Original Note:
Patient seen bedside.
IA completed.
CM consulted re Substance abuse.
Patient on 1:1 re suicide risk, psych (P).
Patient lives alone in a 2nd floor apartment.
Independent prior to admission.
Recently unemployed.
No insurance.
Recent admission [phone] and requesting financial assistance.
TC to [facility] line [phone], spoke with Mary- referral for inpatient ETOH rehab placed. Mary will contact the patient.
PCP: Elaine De La Torre
Pharmacy: [address]
Plan: Substance abuse rehab
[2023-12-22 13:34] LABS: Glucose - Point of Care 214 mg/dl (70-99)
[2023-12-22] MEDS: NOVOLOG FLEXPEN-LOW RESISTANCE 2 UNITS SC (13:38)
[2023-12-22 15:27] LABS: Blood Urea Nitrogen 12 mg/dl (9-20); Calcium 7.9 mg/dl (8.4-10.2); Carbon Dioxide 24 mmol/L (22-30); Chloride 92 mmol/L (98-107); Estimated Creatinine Clearance > 125 ml/min; Glucose 174 mg/dl (70-99); Potassium 4.2 mmol/L (3.5-5.1); Sodium 122 mmol/L (135-145); eGFR > 60.00
--- NOTE | 2023-12-22 16:08 | W.CON.NEPH ---
Consultation
-
Date/Time Consultation Requested: December 22, 2023 4:00pm
Date/Time Consultation Performed: December 22, 2023 4:00 pm
Requesting Provider: Kylah
Performing Provider: Mirna
Reason for Consultation: Hyponatremia
Medical History
-
Chief Complaint: Hyponatremia
History of Present Illness:
Patient is a 58y M with PMH significant for hypertension maintained on lisinopril and, DM-II maintained on metformin, dyslipidemia maintained on statin therapy, and alcohol use disorder, who presents to ED complaining of alcohol withdrawal
symptoms.� Patient states that he was seen in the ED about one month ago with similar complaints and was discharged to a rehab center.� He stayed there for 7 days and then signed out voluntarily.� He began drinking again about 3 days later.� Patient
notes intake of about 1/5 of bourbon daily.� His last drink was this AM around 10 AM.
This afternoon he began to develop shaking / tremulousness, anxiety and SOB.� His family intervened and patient was brought to the ED for further evaluation.
Patient denies any recent illness, fevers, cough, etc. on presentation to the hospital he was noted to be hyponatremic with a serum sodium level of 125 which is now dropped to 122 and nephrology was consulted to see the patient.
Note:� Patient was diagnosed with rheumatoid arthritis a few months ago and was recently started on monthly Simponi infusions.� Has had two doses thus far.
Past Medical History
Hypertension
Alcohol abuse with previous rehab stay
Dyslipidemia
Rheumatoid arthritis
Diabetes
Social History
Tobacco: Former Smoker
Alcohol: Chronic Alcoholic
Drug: None
Family History
No CKD
Noted for coronary artery disease and prostate cancer
Allergies / Home Medications
Allergy/AdvReac Type Severity Reaction Status Date / Time
No Known Allergies Allergy Verified 12/21/23 17:43
Medication Instructions Recorded Confirmed Type
amlodipine 10 mg tablet 10 mg PO DAILY Blood Pressure 12/21/23 12/21/23 History
atorvastatin 20 mg tablet 20 mg PO DAILY High Cholesterol 12/21/23 12/21/23 History
golimumab 50 mg/0.5 mL 50 mg SC QMONTH Hormonal Agent 12/21/23 12/21/23 History
subcutaneous syringe (Simponi)
hydroxyzine HCl 25 mg tablet 25 mg PO TID PRN itching 12/21/23 12/21/23 History
lisinopril 20 mg tablet 20 mg PO DAILY Blood Pressure 12/21/23 12/21/23 History
metformin 500 mg tablet 500 mg PO BIDWMEAL Diabetes 12/21/23 12/21/23 History
Review of Systems
-
All other systems: Negative unless noted
Abdomen/GI: Other (Hiccups)
Physical Exam
Vital Signs
Vital Signs
Temp Pulse Resp BP Pulse Ox
98.3 F 92 29 123/106 96
12/22/23 15:07 12/22/23 15:00 12/22/23 14:00 12/22/23 15:00 12/22/23 08:38
Lab Results
12/22/23 03:53
WBC 9.4 10^3/uL (4.8-10.8) 12/22/23 03:53
RBC 4.23 10^6/uL (4.70-6.10) L 12/22/23 03:53
Hgb 13.7 g/dL (13.0-18.0) 12/22/23 03:53
Hct 37.6 % (39.0-52.0) L 12/22/23 03:53
Plt Count 180 10^3/uL (130-400) D 12/22/23 03:53
eGFR > 60.00 12/22/23 15:06
Phosphorus 3.6 mg/dl (2.5-4.5) 12/22/23 03:53
Albumin 4.4 g/dl (3.5-5.0) 12/21/23 17:48
Physical Exam
General: AOx3
HEENT: PERRL, Anicteric, Conjunctivae Clear, Hearing Normal, Oropharynx Clear/Moist, Neck Supple, Trachea Midline and No Thyromegaly
Respiratory: Clear
Cardiac: S1/S2 and Regular Rate/Rhythm
Breast: Deferred by me
Abdomen: Nontender, Nondistended, Normal Bowel Sounds and No Hepatosplenomegaly
Genito-urinary: No Costovertebral Tender
Musculoskeletal: No Clubbing, No Cyanosis and No Edema
Skin: No Rash
Neuro: Nonfocal/Grossly Intact
Hematologic/Lymphatic: No Cervical Lymphadenopathy, No Submandibular Lymphadenopathy, No Supraclavicular Lymphadenopathy and Other
Assessment/Plan
-
Impression:
Hyponatremia
Alcohol withdrawal
Gapped metabolic acidosis
Hypertension
Diabetes
Rheumatoid arthritis
Plan:
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
-Concur with fluid restriction and 3% saline administration
-Follow-up electrolytes post 3% saline infusion, may require repeat
-Will attempt to bring up serum sodium levels by no more than 10 mEq/L over next 24 hours
-Will hold metformin in setting of Metabolic acidosis which is improving
Data Reviewed
-
Radiology: Image Personally Visualized and interpreted (Chest x-ray personally reviewed no CHF or pneumonia)
Labs: Labs Reviewed by me (Reviewed basic metabolic panel urine osmolarity )
Old Records: Reviewed (Reviewed old records from date 11/21/2023 sodium 136 in emr)
[2023-12-22] MEDS: LOVENOX 40 MG SC (17:31)
[2023-12-22 17:43] LABS: Glucose - Point of Care 184 mg/dl (70-99)
--- NOTE | 2023-12-22 18:58 | CON.MD ---
Consultation - Medical
-
Pt seen & evaluated at bedside - psychiatry consulted for alcohol abuse as well as depression.
Pt reports history of intermittent depressive periods, can last weeks to months at a time, in which he feels more down, isolates more, is anhedonic to some degree, less motivated and has had times of passive thoughts of (denies hx of SI with
any intent as he 'would never do that to my family'). These periods will eventually improve but then resume again, though generally in context of life stressors. Recounts several years ago doing really well for about 2.5 yrs - was not using
alcohol, was exercising regularly, eating well and maintaining good social contact. Says he was not depressed during that time and felt well. Started drinking again because he stopped regularly engaging in these activities and has since struggled
with sobriety. He reports long hx of on and off alcohol use - will drink excessively for period of time, then will realize he is drinking 'too much' and suffering consequences so will stop regular use for certain period of time. Has never needed
rehab or outpatient tx for this until recently - during his last admission here he did go to a rehab, but says he left early and started drinking again. He is now able to reflect on this and acknowledge that he should have stayed for the entire time
and is now willing to do so as he has been unable to stop drinking on his own now.
Also reports hx of social anxiety, will get anxious prior to social events, at times has avoided social events because of the anxiety ruminates on interactions. He does note however that when he does force himself to go, anxiety improves and he ends
up 'having a great time'.
No hx of rob or psychosis elicited.
Past psych: none
FH: M grandfather with EtOH abuse, no other hx
SH: L:dianne on his own, same home for past 13 yrs. Notes that living alone contributes to depressive feelings, though does have a dog who keeps him company (sister is jus sigrid dog currently). 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 Never , no
kids. Has large extended family and describes them as positive supports. Also has social supports in friends, some of whom hes been friends with since HS. Did have several recent stressors, including father passing away 09/26/23, anniversary of
sisters passing (has 2 more living sisters) and another loss in the family.
D&A: none other than EtOH
MSE: male, good eye contact, speech nl rate & rhythm. Mood is down but appropriate to situation, affect is also down but appropriate to situation. Thought process is linear & logical. No evidence of SI/HI/AVH/delusions. Fully oriented. Memory not
formally tested. Insight/judgement fair.
Unspecified depressive d/o
Social anxiety
EtOH abuse
1. No indication for psychotropics at this time & pt does not want to utilize medication currently, prefers to try therapeutic/behavioral approach - suspect that depression will improve significantly if EtOH use stops and he returns to his routine
previously where he did quite well for 2.5 yrs. Plans to work on this again & to seek out a therapist.
2. Continue phenobarbital taper + MSAS protocol
3. Open to inpatient rehab once able to discharge
4. No need for 1-1, no evidence of acute suicidality or risk to self/others
--- NOTE | 2023-12-22 20:00 | PTCARENOTE ---
Received pt ambulating by himself in room, AAOx3. Without complaints. Hiccups on and off. MSAS = 1. SR on tele, HR 70s. Placed on tele pack. VSS. On RA, lungs CTA. BM today. Tolerating 2000cal diab diet + fluid restriction. Voiding in bathroom. B/L
INTs patent and capped. Repeat labs drawn. Monitoring
[2023-12-22 20:21] LABS: Blood Urea Nitrogen 11 mg/dl (9-20); Calcium 8.1 mg/dl (8.4-10.2); Carbon Dioxide 24 mmol/L (22-30); Chloride 93 mmol/L (98-107); Estimated Creatinine Clearance > 125 ml/min; Glucose 182 mg/dl (70-99); Sodium 123 mmol/L (135-145); eGFR > 60.00
[2023-12-22 22:15] LABS: Glucose - Point of Care 172 mg/dl (70-99)
--- NOTE | 2023-12-22 23:16 | W.PN.UPDATE ---
Update Note
Progress Note Update
4923- Dr. Bradley, codifier updated on sodium results 123. Recommendations received and hypertonic saline 3% ordered at 30cc/hr for 250cc and continue to trend BMP for Na levels.
--- NOTE | 2023-12-22 23:20 | PTCARENOTE ---
Sodium = 123. 3% saline ordered and hung. Pt. resting calmly.
[2023-12-23] VITALS (10 sets, daily range): BP systolic 112–159; BP diastolic 75–98; BMI 29.9
[2023-12-23] MEDS: HYDROCORTISONE 2.5% CREAM TOPICAL
[2023-12-23] MEDS: THIAMINE INJECTION 200 MG IV ×4 (00:08→23:26)
[2023-12-23 04:21] LABS: Hematocrit 36.4 % (39.0-52.0); Hemoglobin 13.4 g/dL (13.0-18.0); Mean Corp Hgb Conc. 36.8 g/dL (33.0-37.0); Mean Corpuscular Hgb 33.2 pg (27.0-31.0); Mean Corpuscular Volume 90.1 fL (80.0-94.0); Mean Platelet Volume 8.6 fL (7.4-10.4); Platelet Count 163 10^3/uL (130-400); Red Blood Cell Count 4.04 10^6/uL (4.70-6.10); Red Cell Dist. Width 12.4 % (11.5-14.5); White Blood Cell Count 5.5 10^3/uL (4.8-10.8)
[2023-12-23 05:04] LABS: Blood Urea Nitrogen 10 mg/dl (9-20); Calcium 7.9 mg/dl (8.4-10.2); Carbon Dioxide 26 mmol/L (22-30); Chloride 98 mmol/L (98-107); Estimated Creatinine Clearance > 125 ml/min; Glucose 142 mg/dl (70-99); Magnesium 2.2 mg/dl (1.6-2.3); Sodium 128 mmol/L (135-145); eGFR > 60.00
--- NOTE | 2023-12-23 05:29 | PTCARENOTE ---
Na = 128. Discussed with GREG Hernandez. 3% stopped at 0510. About 2 hours (60ml) left remaining in bag. Pt. without complaint or issues overnight.
--- NOTE | 2023-12-23 07:13 | W.PN.HOSP.TC ---
Addendum entered and electronically signed by Maycol Montero DO 12/23/23 07:24:
According to ICU nurse, psychiatry assessed Mr. Hernández yesterday and recommended stopping one-to-one observation. I asked for a formal psychiatry consultation but I do not see a note yet.
Original Note:
Today's Communication/Plan
-
Transfer out of ICU
Continue treating alcohol withdrawal
Monitor sodium
Assessment / Plan
Assessment / Plan
Gen-AAOx3, NAD
HEENT-NC, AT, anicteric, clear oral mm
Neck-supple
CV-reg, no M, +S1/S2
Lungs-clear B/L
Abd-soft, NT, ND
Ext-no edema
Musculoskeletal-no cyanosis, clubbing
Skin-warm and dry
Neuro-grossly non-focal
Psych-calm, cooperative
Acute alcohol intoxication -resolved.
Acute alcohol withdrawal syndrome -continue supportive care. Phenobarbital taper. Lorazepam as needed. Continue vitamins. Ideally needs to go back to rehab. Social work to assist.
High anion gap metabolic acidosis -resolved. Suspect mostly due to alcoholic ketoacidosis. Anion gap normalized. Bicarb normal. Doubt DKA.
Hyponatremia -likely due to alcohol abuse. Urine osmolality 860, urine sodium 116, consistent with excess ADH. Fluid restriction. Sodium improved to 128 this morning. Received 3% saline last night. Nephrology following.
TSH normal.
Intractable hiccups -slowly improving. Increase baclofen to 10 mg 3 times daily.
DM 2 with hyperglycemia -hemoglobin A1c 8.4%. On metformin at home. Continue sliding scale insulin for now. Glucose 142 this morning.
Hyperlipidemia -on atorvastatin.
Essential hypertension -blood pressure is controlled off of his usual meds. He takes amlodipine, lisinopril at home, currently not getting it here.
Rheumatoid arthritis -on monthly Golimumab. Controlled.
Obesity due to excess calories
Full code
Transfer out of ICU today.
Anticipated Discharge: 24 - 48 hours
Subjective/Interval History
-
Date of Service: December 23, 2023
Patient seen and examined. Still with hiccups but less than yesterday. No complaints.
Objective Data
-
Labs:
Laboratory Results
12/22/23 12/22/23 12/22/23
07:59 11:59 19:59
WBC
Hgb
Hct
Plt Count
Sodium Cancelled Cancelled 123 L
Potassium Cancelled Cancelled 4.0
Chloride Cancelled Cancelled 93 L
Carbon Dioxide Cancelled Cancelled 24
BUN Cancelled Cancelled 11
Creatinine Cancelled Cancelled 0.5 L
Glucose Cancelled Cancelled 182 H
Calcium Cancelled Cancelled 8.1 L
12/22/23 12/23/23
23:59 04:06
WBC 5.5
Hgb 13.4
Hct 36.4 L
Plt Count 163
Sodium Cancelled 128 L
Potassium Cancelled 4.0
Chloride Cancelled 98
Carbon Dioxide Cancelled 26
BUN Cancelled 10
Creatinine Cancelled 0.5 L
Glucose Cancelled 142 H
Calcium Cancelled 7.9 L
Vital Signs:
Vital Signs
Temp Pulse Resp BP Pulse Ox
98.0 F 84 21 112/77 96
12/23/23 04:06 12/23/23 07:00 12/22/23 18:00 12/23/23 04:00 12/22/23 20:00
I&O
12/22/23 12/23/23 12/24/23
06:59 06:59 06:59
Intake Total 1125 / 1250 1540 / 1540
Output Total 200 / 200
Balance 925 / 1050 1540 / 1540
Review of Systems
-
History Source: Patient
All other systems: Reviewed and negative
[2023-12-23 07:45] LABS: Glucose - Point of Care 178 mg/dl (70-99)
[2023-12-23] MEDS: LIORESAL 10 MG PO ×3 (07:50→20:51)
[2023-12-23] MEDS: FOLVITE 1 MG PO (07:50)
[2023-12-23] MEDS: PHENOBARBITAL 97.5 MG IV ×3 (07:55→20:51)
[2023-12-23] MEDS: HYDROCORTISONE 2.5% CREAM 1 APPLIC TOPICAL ×2 (07:55→20:52)
[2023-12-23] MEDS: NOVOLOG FLEXPEN-LOW RESISTANCE 1 UNITS SC (07:56)
--- NOTE | 2023-12-23 08:31 | W.PN.NEPH.PH ---
Today's Communication / Plan
-
Maintain fluid restriction
No further 3% saline at this time
Follow-up lites this afternoon
Assessment/Plan
-
Impression:
Hyponatremia
Alcohol withdrawal
Gapped metabolic acidosis
Hypertension
Diabetes
Rheumatoid arthritis
Plan:
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
-Concur with fluid restriction and maintain FR for now
-repeated 3% saline last evening ,no more as of now
-Sodium up to 128
-repeat lytes later this afternoon
-currently holding metformin in setting of Metabolic acidosis which is improving
-
-
Date of Service: December 23, 2023
CC / HPI / ROS
-
Chief Complaint:
Hyponatremia
History of Present Illness:
Serum sodium up to 128 following 3% administration x 2
Hemodynamically more stable
Review of Systems:
Subjectively nonoliguric
No chest pain or shortness of breath
Labs
-
Labs:
WBC 5.5 10^3/uL (4.8-10.8) 12/23/23 04:06
RBC 4.04 10^6/uL (4.70-6.10) L 12/23/23 04:06
Hgb 13.4 g/dL (13.0-18.0) 12/23/23 04:06
Hct 36.4 % (39.0-52.0) L 12/23/23 04:06
Plt Count 163 10^3/uL (130-400) 12/23/23 04:06
Sodium 128 mmol/L (135-145) L 12/23/23 04:06
Potassium 4.0 mmol/L (3.5-5.1) 12/23/23 04:06
Chloride 98 mmol/L (98-107) 12/23/23 04:06
Carbon Dioxide 26 mmol/L (22-30) 12/23/23 04:06
BUN 10 mg/dl (9-20) 12/23/23 04:06
Creatinine 0.5 mg/dL (0.7-1.3) L 12/23/23 04:06
eGFR > 60.00 12/23/23 04:06
Glucose 142 mg/dl (70-99) H 12/23/23 04:06
Calcium 7.9 mg/dl (8.4-10.2) L 12/23/23 04:06
Phosphorus 3.6 mg/dl (2.5-4.5) 12/22/23 03:53
Albumin 4.4 g/dl (3.5-5.0) 12/21/23 17:48
Physical Exam
-
Vital Signs:
Vital Signs
Temp Pulse Resp BP Pulse Ox
99.4 F 84 21 112/77 96
12/23/23 07:00 12/23/23 07:00 12/22/23 18:00 12/23/23 04:00 12/22/23 20:00
Cardiovascular:: Regular rate and rhythm
Respiratory:: Bilateral: CTA
Lung Excursion:: Normal
Abdomen:: Nontender and Soft
Bowel Sounds:: Normal
Extremity Edema:: None: Bilateral:
Ramirez Catheter: No
--- NOTE | 2023-12-23 09:00 | PTCARENOTE ---
Pt resting comfortably. No complaints or distress. Ambulating in room. Gait steady. No tremors noted. Tolerating breakfast.
[2023-12-23] MEDS: NOVOLOG FLEXPEN-LOW RESISTANCE 2 UNITS SC (12:16)
[2023-12-23 12:17] LABS: Glucose - Point of Care 208 mg/dl (70-99)
[2023-12-23 15:35] LABS: Carbon Dioxide 25 mmol/L (22-30); Chloride 92 mmol/L (98-107); Potassium 3.7 mmol/L (3.5-5.1); Sodium 128 mmol/L (135-145)
[2023-12-23 16:48] LABS: Glucose - Point of Care 155 mg/dl (70-99)
[2023-12-23] MEDS: NOVOLOG FLEXPEN-LOW RESISTANCE 300 UNITS SC (17:00)
--- NOTE | 2023-12-23 18:30 | PTCARENOTE ---
Pt resting comfortably. No distress
[2023-12-23] MEDS: LOVENOX 40 MG SC (18:58)
--- NOTE | 2023-12-23 20:00 | PTCARENOTE ---
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 SR HR 70s. B/L IV patent, no gtt infusing. RA Sat 97%. POC discussed.
--- NOTE | 2023-12-23 21:29 | PTCARENOTE ---
vss, report called to 4E, pt for tx to rm 412-1.
[2023-12-23 21:49] LABS: Glucose - Point of Care 143 mg/dl (70-99)
--- NOTE | 2023-12-23 22:27 | PTCARENOTE ---
Patient transferred from ICu to room 412-1. He is awake alert and oriented, denies pain. On the monitor he is in a NSR. His MSAS at this time is a '2'. Oriented to unit . Call dan in reach.
[2023-12-24 03:27] VITALS: BP 127/80
[2023-12-24 06:00] VITALS: BMI 29.2
[2023-12-24 07:18] LABS: Glucose - Point of Care 135 mg/dl (70-99)
[2023-12-24 07:24] VITALS: BP 133/81
[2023-12-24 08:12] LABS: Blood Urea Nitrogen 11 mg/dl (9-20); Calcium 8.3 mg/dl (8.4-10.2); Carbon Dioxide 26 mmol/L (22-30); Chloride 94 mmol/L (98-107); Estimated Creatinine Clearance > 125 ml/min; Glucose 144 mg/dl (70-99); Potassium 3.7 mmol/L (3.5-5.1); Sodium 129 mmol/L (135-145); eGFR > 60.00
[2023-12-24] MEDS: LUMINAL 64.7999999999999972 MG PO ×3 (08:59→22:19)
[2023-12-24] MEDS: LIORESAL 10 MG PO ×3 (08:59→22:19)
[2023-12-24] MEDS: FOLVITE 1 MG PO (08:59)
[2023-12-24] MEDS: NOVOLOG FLEXPEN-LOW RESISTANCE SC (09:00)
[2023-12-24] MEDS: THIAMINE INJECTION 200 MG IV ×2 (09:00→15:40)
[2023-12-24] MEDS: HYDROCORTISONE 2.5% CREAM TOPICAL ×2 (09:10→19:49)
[2023-12-24 11:07] VITALS: BP 127/85
[2023-12-24 11:26] LABS: Glucose - Point of Care 166 mg/dl (70-99)
[2023-12-24] MEDS: NOVOLOG FLEXPEN-LOW RESISTANCE 1 UNITS SC ×2 (11:28→16:56)
--- NOTE | 2023-12-24 11:44 | W.PN.NEPH.PH ---
Today's Communication / Plan
-
samsca
Assessment/Plan
-
Impression:
Hyponatremia
Alcohol withdrawal
Gapped metabolic acidosis
Hypertension
Diabetes
Rheumatoid arthritis
Plan:
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
-samsca low dose today
-follow BMP
-
-
Date of Service: December 24, 2023
CC / HPI / ROS
-
Chief Complaint:
Hyponatremia
History of Present Illness:
Serum sodium up to 129
Hemodynamically stable
Review of Systems:
Subjectively nonoliguric
No chest pain or shortness of breath
Labs
-
Labs:
WBC 5.5 10^3/uL (4.8-10.8) 12/23/23 04:06
RBC 4.04 10^6/uL (4.70-6.10) L 12/23/23 04:06
Hgb 13.4 g/dL (13.0-18.0) 12/23/23 04:06
Hct 36.4 % (39.0-52.0) L 12/23/23 04:06
Plt Count 163 10^3/uL (130-400) 12/23/23 04:06
Sodium 129 mmol/L (135-145) L 12/24/23 07:12
Potassium 3.7 mmol/L (3.5-5.1) 12/24/23 07:12
Chloride 94 mmol/L (98-107) L 12/24/23 07:12
Carbon Dioxide 26 mmol/L (22-30) 12/24/23 07:12
BUN 11 mg/dl (9-20) 12/24/23 07:12
Creatinine 0.5 mg/dL (0.7-1.3) L 12/24/23 07:12
eGFR > 60.00 12/24/23 07:12
Glucose 144 mg/dl (70-99) H 12/24/23 07:12
Calcium 8.3 mg/dl (8.4-10.2) L 12/24/23 07:12
Phosphorus 3.6 mg/dl (2.5-4.5) 12/22/23 03:53
Albumin 4.4 g/dl (3.5-5.0) 12/21/23 17:48
Physical Exam
-
Vital Signs:
Vital Signs
Temp Pulse Resp BP Pulse Ox
98.3 F 78 18 133/81 94
12/24/23 07:24 12/24/23 07:24 12/24/23 07:24 12/24/23 07:24 12/24/23 11:24
Cardiovascular:: Regular rate and rhythm
Respiratory:: Bilateral: Coarse
Lung Excursion:: Normal
Abdomen:: Nontender and Soft
Bowel Sounds:: Normal
Extremity Edema:: None: Bilateral:
[2023-12-24] MEDS: SAMSCA 7.5 MG PO (11:54)
--- NOTE | 2023-12-24 12:24 | W.PN.HOSP.TC ---
Today's Communication/Plan
-
Monitor vital signs and see plan
PT/OT
Samsca
Assessment / Plan
Assessment / Plan
Gen-AAOx3, NAD
HEENT-NC, AT, anicteric, clear oral mm
Neck-supple
CV-reg, no M, +S1/S2
Lungs-clear B/L
Abd-soft, NT, ND
Ext-no edema
Musculoskeletal-no cyanosis, clubbing
Skin-warm and dry
Neuro-grossly non-focal
Psych-calm, cooperative
Acute alcohol intoxication -resolved.
Acute alcohol withdrawal syndrome -continue supportive care. Phenobarbital taper. Lorazepam as needed. Continue vitamins. Ideally needs to go back to rehab. Social work to assist.
High anion gap metabolic acidosis -resolved. Suspect mostly due to alcoholic ketoacidosis. Anion gap normalized. Bicarb normal. Doubt DKA.
Hyponatremia -likely due to alcohol abuse. Urine osmolality 860, urine sodium 116, consistent with excess ADH. Fluid restriction. Sodium 129; received 3% saline this hospitalization. Nephrology following. Tristian 12/23
TSH normal.
Intractable hiccups -slowly improving. Increase baclofen to 10 mg 3 times daily.
DM 2 with hyperglycemia -hemoglobin A1c 8.4%. On metformin at home. Continue sliding scale insulin for now. Glucose 142 this morning.
Hyperlipidemia -on atorvastatin.
Essential hypertension -blood pressure is controlled off of his usual meds. He takes amlodipine, lisinopril at home, currently not getting it here.
Rheumatoid arthritis -on monthly Golimumab. Controlled.
Obesity due to excess calories
Full code
Anticipated Discharge: Within 24 hours
Subjective/Interval History
-
Date of Service: December 24, 2023
denies pain
Objective Data
-
Labs:
Laboratory Results
12/24/23
07:12
Sodium 129 L
Potassium 3.7
Chloride 94 L
Carbon Dioxide 26
BUN 11
Creatinine 0.5 L
Glucose 144 H
Calcium 8.3 L
Vital Signs:
Vital Signs
Temp Pulse Resp BP Pulse Ox
98.4 F 102 18 127/85 94
12/24/23 11:07 12/24/23 11:07 12/24/23 11:07 12/24/23 11:07 12/24/23 11:24
I&O
12/23/23 12/24/23 12/25/23
06:59 06:59 06:59
Intake Total 1540 / 1540 720 / 720
Balance 1540 / 1540 720 / 720
[2023-12-24 15:55] VITALS: BP 140/90
[2023-12-24 16:53] LABS: Glucose - Point of Care 157 mg/dl (70-99)
[2023-12-24] MEDS: LOVENOX 40 MG SC (16:56)
[2023-12-24 19:05] LABS: Hepatitis C Antibody Negative (Negative)
[2023-12-24] MEDS: VITAMIN B1 100 MG PO (19:51)
[2023-12-24 19:55] VITALS: BP 129/88
[2023-12-24 21:14] LABS: Glucose - Point of Care 151 mg/dl (70-99)
[2023-12-24 23:19] VITALS: BP 124/87
[2023-12-25] VITALS (7 sets, daily range): BP systolic 133–139; BP diastolic 79–89; PULSE 92; O2SAT 96; BMI 28.8
[2023-12-25 07:23] LABS: Glucose - Point of Care 157 mg/dl (70-99)
[2023-12-25 08:57] LABS: Blood Urea Nitrogen 9 mg/dl (9-20); Calcium 8.8 mg/dl (8.4-10.2); Carbon Dioxide 25 mmol/L (22-30); Chloride 98 mmol/L (98-107); Estimated Creatinine Clearance > 125 ml/min; Glucose 168 mg/dl (70-99); Sodium 133 mmol/L (135-145); eGFR > 60.00
[2023-12-25] MEDS: NOVOLOG FLEXPEN-LOW RESISTANCE 1 UNITS SC (09:10)
[2023-12-25] MEDS: LUMINAL 64.7999999999999972 MG PO ×3 (09:11→21:02)
[2023-12-25] MEDS: VITAMIN B1 100 MG PO ×2 (09:11→19:49)
[2023-12-25] MEDS: LIORESAL 10 MG PO (09:11)
[2023-12-25] MEDS: HYDROCORTISONE 2.5% CREAM TOPICAL ×2 (09:12→19:41)
[2023-12-25] MEDS: FOLVITE 1 MG PO (09:12)
--- NOTE | 2023-12-25 10:20 | CM ---
Addendum entered by Ritu Henderson 12/25/23 11:53:
Per Misael [facility] [phone], patient must be off phenobarb before accepting, Hospitalist updated. Patient updated as well. Per Misael, [facility] will hold a bed for patient. Plan for discharge tomorrow, Misael will set up transportation.
Plan; discharge to [facility] tomorrow.
Original Note:
Patient seen beside with family. Patient is working with Misael from [facility]. Per previous CM, Misael has a meeting and will be calling CM afterwards as he is trying to get patient in [facility]. CM will continue to follow for discharge planning
needs.
Plan; awaiting call from Misael, hopeful inpatient at [facility].
--- NOTE | 2023-12-25 10:53 | W.PN.HOSP.TC ---
Today's Communication/Plan
-
Monitor vital signs and see plan
Sodium improved to 133
Continue with phenobarb
Possible discharge today to inpatient alcohol rehab
Assessment / Plan
Assessment / Plan
Gen-AAOx3, NAD
HEENT-NC, AT, anicteric, clear oral mm
Neck-supple
CV-reg, no M, +S1/S2
Lungs-clear B/L
Abd-soft, NT, ND
Ext-no edema
Musculoskeletal-no cyanosis, clubbing
Skin-warm and dry
Neuro-grossly non-focal
Psych-calm, cooperative
Acute alcohol intoxication -resolved.
Acute alcohol withdrawal syndrome -continue supportive care. Phenobarbital taper. Lorazepam as needed. Continue vitamins. Ideally needs to go back to rehab. Social work to assist.
High anion gap metabolic acidosis -resolved. Suspect mostly due to alcoholic ketoacidosis. Anion gap normalized. Bicarb normal. Doubt DKA.
Hyponatremia -likely due to alcohol abuse. Urine osmolality 860, urine sodium 116, consistent with excess ADH. Fluid restriction. Sodium 133 now; received 3% saline this hospitalization. Nephrology following. Tristian 12/23
TSH normal.
Intractable hiccups -slowly improving. dec baclofen back to 5mg
DM 2 with hyperglycemia -hemoglobin A1c 8.4%. On metformin at home. Continue sliding scale insulin for now.
Hyperlipidemia -on atorvastatin.
Essential hypertension -blood pressure is controlled off of his usual meds. He takes amlodipine, lisinopril at home, currently not getting it here.
Rheumatoid arthritis -on monthly Golimumab. Controlled.
Obesity due to excess calories
Full code
Anticipated Discharge: Today
Subjective/Interval History
-
Date of Service: December 25, 2023
denies pain
Objective Data
-
Labs:
Laboratory Results
12/25/23
07:54
Sodium 133 L
Potassium 4.0
Chloride 98
Carbon Dioxide 25
BUN 9
Creatinine 0.6 L
Glucose 168 H
Calcium 8.8
Vital Signs:
Vital Signs
Temp Pulse Resp BP Pulse Ox
98.0 F 74 18 139/89 94
12/25/23 07:55 12/25/23 07:55 12/25/23 07:55 12/25/23 07:55 12/25/23 07:55
I&O
12/24/23 12/25/23 12/26/23
06:59 06:59 06:59
Intake Total 720 / 720 1260 / 1260
Balance 720 / 720 1260 / 1260
[2023-12-25 11:54] LABS: Glucose - Point of Care 149 mg/dl (70-99)
[2023-12-25] MEDS: NOVOLOG FLEXPEN-LOW RESISTANCE SC ×2 (11:55→17:04)
--- NOTE | 2023-12-25 13:32 | W.PN.NEPH.PH ---
Today's Communication / Plan
-
lasix
Assessment/Plan
-
Impression:
Hyponatremia
Alcohol withdrawal
Gapped metabolic acidosis
Hypertension
Diabetes
Rheumatoid arthritis
Plan:
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
-lasix 20mg daily
-FR continues
-follow BMP
-dc planning
-
-
Date of Service: December 25, 2023
CC / HPI / ROS
-
Chief Complaint:
Hyponatremia
History of Present Illness:
Serum sodium up to 133 with samsca
Hemodynamically stable
Review of Systems:
Subjectively nonoliguric
No chest pain or shortness of breath
Labs
-
Labs:
WBC 5.5 10^3/uL (4.8-10.8) 12/23/23 04:06
RBC 4.04 10^6/uL (4.70-6.10) L 12/23/23 04:06
Hgb 13.4 g/dL (13.0-18.0) 12/23/23 04:06
Hct 36.4 % (39.0-52.0) L 12/23/23 04:06
Plt Count 163 10^3/uL (130-400) 12/23/23 04:06
Sodium 133 mmol/L (135-145) L 12/25/23 07:54
Potassium 4.0 mmol/L (3.5-5.1) 12/25/23 07:54
Chloride 98 mmol/L (98-107) 12/25/23 07:54
Carbon Dioxide 25 mmol/L (22-30) 12/25/23 07:54
BUN 9 mg/dl (9-20) 12/25/23 07:54
Creatinine 0.6 mg/dL (0.7-1.3) L 12/25/23 07:54
eGFR > 60.00 12/25/23 07:54
Glucose 168 mg/dl (70-99) H 12/25/23 07:54
Calcium 8.8 mg/dl (8.4-10.2) 12/25/23 07:54
Phosphorus 3.6 mg/dl (2.5-4.5) 12/22/23 03:53
Albumin 4.4 g/dl (3.5-5.0) 12/21/23 17:48
Physical Exam
-
Vital Signs:
Vital Signs
Temp Pulse Resp BP Pulse Ox
98.0 F 74 18 139/89 94
12/25/23 07:55 12/25/23 07:55 12/25/23 07:55 12/25/23 07:55 12/25/23 07:55
Cardiovascular:: Regular rate and rhythm
Respiratory:: Bilateral: Coarse
Lung Excursion:: Normal
Abdomen:: Nontender and Soft
Bowel Sounds:: Normal
Extremity Edema:: None: Bilateral:
[2023-12-25] MEDS: LASIX 20 MG PO (15:37)
[2023-12-25] MEDS: LIORESAL 5 MG PO ×2 (15:37→21:01)
[2023-12-25 17:01] LABS: Glucose - Point of Care 140 mg/dl (70-99)
[2023-12-25] MEDS: LOVENOX 40 MG SC (17:21)
[2023-12-25 21:11] LABS: Glucose - Point of Care 160 mg/dl (70-99)
[2023-12-26 03:37] VITALS: BP 125/78
--- NOTE | 2023-12-26 04:10 | DOWNTIME ---
There was a [employer] Downtime on 12/26/2023 from 0100 to 12/26/2023 at 0322. Downtime documentation of patient's care, including medication administrations, has been reconciled in the electronic record per guidelines. Refer to the
patient's paper chart under the miscellaneous tab to see printed paper medication records and downtime forms.
[2023-12-26 06:00] VITALS: BMI 28.6
[2023-12-26 07:06] LABS: Blood Urea Nitrogen 9 mg/dl (9-20); Calcium 8.7 mg/dl (8.4-10.2); Carbon Dioxide 28 mmol/L (22-30); Chloride 99 mmol/L (98-107); Estimated Creatinine Clearance > 125 ml/min; Glucose 155 mg/dl (70-99); Potassium 3.9 mmol/L (3.5-5.1); Sodium 130 mmol/L (135-145); eGFR > 60.00
[2023-12-26 07:13] LABS: Glucose - Point of Care 173 mg/dl (70-99)
[2023-12-26 07:40] VITALS: BP 135/84
[2023-12-26] MEDS: NOVOLOG FLEXPEN-LOW RESISTANCE 1 UNITS SC ×3 (07:57→17:03)
[2023-12-26] MEDS: LASIX 20 MG PO (07:58)
[2023-12-26] MEDS: VITAMIN B1 100 MG PO ×2 (07:58→20:00)
[2023-12-26] MEDS: LUMINAL 32.3999999999999986 MG PO ×3 (07:58→21:07)
[2023-12-26] MEDS: LIPITOR 20 MG PO (07:58)
[2023-12-26] MEDS: FOLVITE 1 MG PO (07:58)
[2023-12-26] MEDS: LIORESAL 5 MG PO ×3 (07:59→21:06)
[2023-12-26] MEDS: HYDROCORTISONE 2.5% CREAM TOPICAL ×2 (08:02→20:00)
--- NOTE | 2023-12-26 10:37 | W.PN.HOSP.TC ---
Today's Communication/Plan
-
Monitor vital signs see plan
Continue with Lasix
Monitor sodium
Discharge tomorrow
Continue with phenobarbital for today
Assessment / Plan
Assessment / Plan
Gen-AAOx3, NAD
HEENT-NC, AT, anicteric, clear oral mm
Neck-supple
CV-reg, no M, +S1/S2
Lungs-clear B/L
Abd-soft, NT, ND
Ext-no edema
Musculoskeletal-no cyanosis, clubbing
Neuro-grossly non-focal
Psych-calm, cooperative
Acute alcohol intoxication -resolved.
Acute alcohol withdrawal syndrome -continue supportive care. Phenobarbital taper. Lorazepam as needed. Continue vitamins. Ideally needs to go back to rehab. Social work to assist. facility cant accept until phenobarb is done. plan for dc
tomorrow
High anion gap metabolic acidosis -resolved. Suspect mostly due to alcoholic ketoacidosis. Anion gap normalized. Bicarb normal. Doubt DKA.
Hyponatremia -likely due to alcohol abuse. Urine osmolality 860, urine sodium 116, consistent with excess ADH. Fluid restriction. Sodium 130 now; received 3% saline this hospitalization. Nephrology following. Tristian 12/23. now on lasix
TSH normal.
Intractable hiccups -slowly improving. dec baclofen back to 5mg
DM 2 with hyperglycemia -hemoglobin A1c 8.4%. On metformin at home. Continue sliding scale insulin for now.
Hyperlipidemia -on atorvastatin.
Essential hypertension -blood pressure is controlled off of his usual meds. He takes amlodipine, lisinopril at home, currently not getting it here.
Rheumatoid arthritis -on monthly Golimumab. Controlled.
Obesity due to excess calories
Full code
Anticipated Discharge: Within 24 hours
Subjective/Interval History
-
Date of Service: December 26, 2023
denies pain
Objective Data
-
Labs:
Laboratory Results
12/26/23
05:42
Sodium 130 L
Potassium 3.9
Chloride 99
Carbon Dioxide 28
BUN 9
Creatinine 0.6 L
Glucose 155 H
Calcium 8.7
Vital Signs:
Vital Signs
Temp Pulse Resp BP Pulse Ox
97.8 F 65 17 122/70 95
12/26/23 07:40 12/26/23 07:58 12/26/23 07:40 12/26/23 07:58 12/26/23 07:40
I&O
12/25/23 12/26/23 12/27/23
06:59 06:59 06:59
Intake Total 1260 / 1260 900 / 900
Balance 1260 / 1260 900 / 900
--- NOTE | 2023-12-26 10:59 | CM ---
NELY spoke with Misael from [facility], plan for patient discharge tomorrow once finished with phenobarbital. Per Misael, he will update [facility] [place] and they will hold the bed for patient. CM will continue to follow for discharge planning needs.
Plan; d/c to [facility] [place] tomorrow, Misael dumont [facility] will set up transportation.
[2023-12-26 11:33] LABS: Glucose - Point of Care 199 mg/dl (70-99)
[2023-12-26 11:39] VITALS: BP 127/71
[2023-12-26] MEDS: ATIVAN 1 MG PO (13:30)
[2023-12-26 15:35] VITALS: BP 118/76
[2023-12-26 16:55] LABS: Glucose - Point of Care 161 mg/dl (70-99)
[2023-12-26] MEDS: LOVENOX 40 MG SC (17:14)
[2023-12-26 19:30] VITALS: BP 142/89
[2023-12-26 21:07] LABS: Glucose - Point of Care 168 mg/dl (70-99)
[2023-12-26 23:36] VITALS: BP 125/73
[2023-12-27 03:31] VITALS: BP 137/87
[2023-12-27 05:35] VITALS: BMI 28.5
[2023-12-27 06:44] LABS: Blood Urea Nitrogen 9 mg/dl (9-20); Calcium 8.7 mg/dl (8.4-10.2); Carbon Dioxide 26 mmol/L (22-30); Chloride 99 mmol/L (98-107); Estimated Creatinine Clearance > 125 ml/min; Glucose 146 mg/dl (70-99); Potassium 3.8 mmol/L (3.5-5.1); Sodium 131 mmol/L (135-145); eGFR > 60.00
[2023-12-27 07:09] LABS: Glucose - Point of Care 143 mg/dl (70-99)
[2023-12-27] MEDS: NOVOLOG FLEXPEN-LOW RESISTANCE SC (07:49)
[2023-12-27] MEDS: LIPITOR 20 MG PO (07:50)
[2023-12-27] MEDS: VITAMIN B1 100 MG PO (07:50)
[2023-12-27] MEDS: HYDROCORTISONE 2.5% CREAM TOPICAL (07:50)
[2023-12-27] MEDS: LIORESAL 5 MG PO (07:50)
[2023-12-27] MEDS: FOLVITE 1 MG PO (07:50)
[2023-12-27] MEDS: LASIX 20 MG PO (07:51)
[2023-12-27] MEDS: LUMINAL 32.3999999999999986 MG PO (07:57)
[2023-12-27 07:58] VITALS: BP 141/90
[2023-12-27] MEDS: ATIVAN 0.5 MG PO (10:00)
--- NOTE | 2023-12-27 10:29 | W.PN.HOSP.TC ---
Today's Communication/Plan
-
Monitor vital signs and see plan
Discharge today
Restart lisinopril
Time of discharge 38 minutes
Assessment / Plan
Assessment / Plan
Gen-AAOx3, NAD
HEENT-NC, AT, anicteric, clear oral mm
Neck-supple
CV-reg, no M, +S1/S2
Lungs-clear B/L
Abd-soft, NT, ND
Ext-no edema
Musculoskeletal-no cyanosis, clubbing
Neuro-grossly non-focal
Psych-calm, cooperative
Acute alcohol intoxication -resolved.
Acute alcohol withdrawal syndrome -continue supportive care. Phenobarbital taper. Lorazepam as needed. Continue vitamins. Ideally needs to go back to rehab. Social work to assist. facility cant accept until phenobarb is done. dc today. not
withdrawing anymore
High anion gap metabolic acidosis -resolved. Suspect mostly due to alcoholic ketoacidosis. Anion gap normalized. Bicarb normal. Doubt DKA.
Hyponatremia -likely due to alcohol abuse. Urine osmolality 860, urine sodium 116, consistent with excess ADH. Fluid restriction. Sodium 131 now; received 3% saline this hospitalization. Nephrology following. Tristian 12/23. now on lasix
TSH normal.
Intractable hiccups -slowly improving. dec baclofen back to 5mg
DM 2 with hyperglycemia -hemoglobin A1c 8.4%. On metformin at home. Continue sliding scale insulin for now.
Hyperlipidemia -on atorvastatin.
Essential hypertension -blood pressure is controlled off of his usual meds. He takes amlodipine, lisinopril at home. Restarted lisinopril on dc
Rheumatoid arthritis -on monthly Golimumab. Controlled.
Obesity due to excess calories
Full code
Anticipated Discharge: Today
Subjective/Interval History
-
Date of Service: December 27, 2023
denies pain
Objective Data
-
Labs:
Laboratory Results
12/27/23
05:46
Sodium 131 L
Potassium 3.8
Chloride 99
Carbon Dioxide 26
BUN 9
Creatinine 0.6 L
Glucose 146 H
Calcium 8.7
Vital Signs:
Vital Signs
Temp Pulse Resp BP Pulse Ox
98.1 F 89 20 141/90 97
12/27/23 07:58 12/27/23 07:58 12/27/23 07:58 12/27/23 07:58 12/27/23 07:58
I&O
12/26/23 12/27/23 12/28/23
06:59 06:59 06:59
Intake Total 900 / 900 960 / 960
Balance 900 / 900 960 / 960
--- NOTE | 2023-12-27 10:32 | W.DCSUMMARY ---
Discharge Summary
Discharge Data
Date of Admission: 12/21/23
Date of Discharge: 12/27/23
-
Pending Results: No
Hospital Course
58 male with past medical history of diabetes, hyperlipidemia, essential hypertension came to the hospital with acute alcohol intoxication. Once that improved patient ends up going into acute alcohol withdrawal syndrome and was started on
phenobarbital along with Ativan. Patient also had anion gap metabolic acidosis which over time resolved. He also had hyponatremia which was likely thought was secondary to alcohol abuse along with SIADH. Patient received 3% saline initially and
was then given Samsca later. On discharge she was put on daily Lasix. He also had intractable hiccups for which she was started on baclofen. Patient finished a course of phenobarbital prior to the discharge. Once patient symptoms improved, he
was then discharged to alcohol rehab with instructions to follow-up with all his physicians outpatient.
Discharge Plan
-
Patient Disposition: Other
Discharge Diagnosis/Procedures: Acute alcohol intoxication
Alcohol withdrawal syndrome
Metabolic acidosis
Hyponatremia
Intractable hiccups
Diabetes mellitus
Diet: Diabetic, Carb Controlled and Restrict fluids to 48 oz
Activity: As tolerated
Driving Restrictions: As prior to admission
Bathing Restrictions: None
Referrals:
Baltazar Landin MD [Family Provider] - in less than 1 week
Prescriptions:
New
thiamine HCl (vitamin B1) 100 mg Tablet
100 mg PO BID Qty: 60 0RF
folic acid 1 mg Tablet
1 mg PO DAILY Qty: 30 0RF
baclofen 10 mg Tablet
5 mg PO TID Qty: 21 0RF
furosemide 20 mg Tablet
20 mg PO DAILY Qty: 30 0RF
Continued
Simponi 50 mg/0.5 mL Syringe
50 mg SC QMONTH
metformin 500 mg Tablet
500 mg PO BIDWMEAL Qty: 60 0RF
atorvastatin 20 mg Tablet
20 mg PO DAILY Qty: 30 0RF
lisinopril 20 mg Tablet
20 mg PO DAILY Qty: 30 0RF
Held
amlodipine 10 mg Tablet
10 mg PO DAILY
Hold Instructions: Restart when blood pressure greater than 140/90
Discontinued
hydroxyzine HCl 25 mg Tablet
25 mg PO TID PRN (Reason: itching)
Discharge Orders:
Discharge Patient (As Directed); Ordered 12/27/23
Ordered By: Jaime Sales
Discharge Date and Time
Discharge Date/Time: 12/27/23 14:02
Print Language: DIVEHI
[2023-12-27 11:29] VITALS: BP 141/91
[2023-12-27 11:52] LABS: Glucose - Point of Care 197 mg/dl (70-99)
[2023-12-27] MEDS: NOVOLOG FLEXPEN-LOW RESISTANCE 1 UNITS SC (11:56)
--- NOTE | 2023-12-27 12:50 | CM ---
Patient seen, plan for 1:30 p.m. discharge to [facility]. Paper scripts placed in patients chart. CM will continue to follow for discharge planning needs.
Plan; 1:30 discharge to [facility], transportation set up through [facility].
[2023-12-27] MEDS: FLUZONE QUAD 2023-2024 SYRINGE 0.5 ML IM (13:17)
--- NOTE | 2023-12-27 14:01 | PTCARENOTE ---
Patient given flu vaccine. IV and tele removed. Patient walked to [facility] that is transporting to [facility]. Patient understands treatment plan and denies questions.
== END 2023-12-27 14:02 | disposition other institution (70) | DRG 897 ==
LOC: 4 EAST ACU 21:07
PROVIDERS: Nurse Practitioner Family; ADMITTING PHYSICIAN Hospitalist; ATTENDING PHYSICIAN Internal Medicine; EMERGENCY PHYSICIAN Emergency Medicine; FAMILY PHYSICIAN Family Medicine; OTHER PHYSICIAN Internal Medicine Critical Care Medicine; OTHER PHYSICIAN Psychiatry & Neurology Psychiatry; OTHER PHYSICIAN Specialist
DX: F10.239 Alcohol dependence with withdrawal, unspecified (principal); E87.20 Acidosis, unspecified; E22.2 Syndrome of inappropriate secretion of antidiuretic hormone; M06.9 Rheumatoid arthritis, unspecified; Z87.891 Personal history of nicotine dependence; I10 Essential (primary) hypertension; E83.51 Hypocalcemia; F32.A Depression, unspecified; F40.10 Social phobia, unspecified; E11.65 Type 2 diabetes mellitus with hyperglycemia; E78.00 Pure hypercholesterolemia, unspecified; R06.6 Hiccough; E66.09 Other obesity due to excess calories; Z68.28 Body mass index [BMI] 28.0-28.9, adult
CPT/HCPCS: 71045; 80048; 80051; 80053; 80306; 80307; 80320; 81003; 82010; 82077; 82693; 82805; 82962; 83036; 83690; 83735; 83930; 83935; 84100; 84300; 84443; 85025; 85027; 85610; 85730; 86803; 90686; 93005; 96361; 96374; 96375; 96376; 97161; 97165; 99285; G0008

== ENCOUNTER 2024-01-09 18:41 | Emergency (ER) | payer SELFPAY ==
[2024-01-09 18:48] VITALS: BP 142/99; BMI 29.5
[2024-01-09 19:03] LABS: % Basophils 1.6 % (0-2); % Eosinophils 3.5 % (0-6); % Immature Granulocytes 0.7 % (0-0.5); % Lymphocytes 37.9 % (20.5-51.1); % Monocytes 12.4 % (1.7-9.3); % Neutrophils 43.9 % (42.2-75.2); Absolute Basophils 0.1 10^3/uL (0-0.2); Absolute Eosinophils 0.2 10^3/uL (0-0.7); Absolute Lymphocytes 2.1 10^3/uL (1.2-3.4); Absolute Monocytes 0.7 10^3/uL (0.1-0.6); Absolute Neutrophils 2.4 10^3/uL (1.4-6.5); Hematocrit 42.4 % (39.0-52.0); Hemoglobin 15.5 g/dL (13.0-18.0); Mean Corp Hgb Conc. 36.6 g/dL (33.0-37.0); Mean Corpuscular Hgb 32.8 pg (27.0-31.0); Mean Corpuscular Volume 89.6 fL (80.0-94.0); Mean Platelet Volume 8.3 fL (7.4-10.4); Nucleated Red Blood Cells % 0 % (-); Platelet Count 351 10^3/uL (130-400); Red Blood Cell Count 4.73 10^6/uL (4.70-6.10); Red Cell Dist. Width 12.1 % (11.5-14.5); White Blood Cell Count 5.5 10^3/uL (4.8-10.8)
[2024-01-09 19:13] LABS: Amphetamines Negative (Negative); Barbiturates Positive (Negative); Benzodiazepines Negative (Negative); Buprenorphine Negative (Negative); Cocaine Negative (Negative); Marijuana Negative (Negative); Methadone Negative (Negative); Methamphetamines Negative (Negative); Opiates Negative (Negative); Phencyclidine Negative (Negative); Tricyclic Antidepressants Negative (Negative)
[2024-01-09 19:19] LABS: Alcohol 121 mg/dl; Blood Urea Nitrogen 6 mg/dl (9-20); Calcium 9.9 mg/dl (8.4-10.2); Carbon Dioxide 20 mmol/L (22-30); Chloride 100 mmol/L (98-107); Estimated Creatinine Clearance > 125 ml/min; Glucose 172 mg/dl (70-99); Potassium 4.2 mmol/L (3.5-5.1); Sodium 133 mmol/L (135-145); eGFR > 60.00
[2024-01-09] MEDS: NSS 1000 IV (21:46)
--- NOTE | 2024-01-09 21:51 | ED.GENMED ---
History of Present Illness
General
Chief Complaint: Alcohol Problem
Source: patient and family (Brothers)
Exam Limitations: none
Time Seen by Provider: 01/09/24 21:23
Travel History
Have you had any contact with someone who has COVID-19?: No
Do you have any symptoms of coronavirus? Fever > 100 degrees, chills, cough, shortness of breath, sore throat, loss of taste or smell, muscle aches, or headache?: No
History of Present Illness
History of Present Illness:
This is a 58 year old male that is brought in by family. Patient states that he fell off the wagon. States that he drank a 5th of Wirt today. States that his last drink was around 10am. States that he needs help. States that he was here about a
month ago and was in ICU. Brothers states that he was saying that he was sore and 'Just want to '. States that he told the police this also. States that he is nauseated and has some SOB and dizziness. Denies any fever, chills, chest pain, abd
pain, vomiting, diarrhea, headache, urinary burning.
Past History
Past History
ED Past Medical History: HTN, Hypercholesterolemia, NIDDM and Psychiatric (Anxiety)
ED Past Surgical History: None
Social History
Tobacco: Former smoker
Alcohol: Daily (was sober and then started drinking on 01/09/24)
Personal: Single
Living: alone
Review of Systems
Review of Systems
All Other Systems: ROS reviewed and negative except as documented in HPI and ROS
Constitutional: Reports no symptoms; Denies fever or chills
EENT: Reports no symptoms
Respiratory: Reports trouble breathing; Denies cough
Cardiac: Reports no symptoms; Denies chest pain
ABD/GI: Reports nausea; Denies abdominal pain, vomiting or diarrhea
: Reports no symptoms; Denies dysuria, frequency or urgency
Musculoskeletal: Reports no symptoms
Skin: Reports no symptoms
Neurological: Reports dizzy; Denies headache
Psychiatric: Reports depression and suicidal (Comments to family)
Phy Exam
General Physical Exam
General Presentation: no apparent distress
General age: appears stated age
General Skin: warm and dry
General Habitus: normal
General Mental: alert
General Hydration: appears well hydrated
ENT Exam
ENT Exam: TM's normal, pharynx normal and neck supple
Eye Exam
Eye Exam: EOMI
Cardiovascular Exam
Cardiovascular Exam: regular rate/rhythm, no edema, no murmur and normal peripheral pulses
Pulmonary Exam
Pulmonary Exam: lungs clear, no respiratory distress, no rales, chest non tender, no crackles, no rhonchi, no wheezing and no cough
Gastrointestinal Exam
Gastrointestinal Exam: normal bowel sounds, non tender, soft, no organomegaly, no pulsatile mass and non distended
Musculoskeletal Exam
Musculoskeletal Exam: full ROM and no edema
Skin Exam
Skin Exam: normal color, warm/dry, no rash and no petechia
Psychiatric Exam
Psychiatric Exam: anxious and depressed
Scores
Withdrawal Assessment of Alcohol
Withdrawal Assessment Completed?: Not applicable
Course
Orders/Labs/Results
Orders:
Orders
01/09/24 18:47
EKG [Electrocardiogram (*1)] Urgent
Reason for Study: Other
Other Reason for Exam: clearance
01/09/24 18:48
EKG- Treatment ONCE
01/09/24 18:55
Alcohol Urgent
Complete Blood Count/With Diff Urgent
Comprehensive Metabolic Panel Urgent
Comment: LFT add on
Lipase Urgent
Comment: ADD ON
Urine Drug Abuse Screen Urgent
Date Specimen was Collected: 01/09/24
Time Specimen was Collected: 18:47
01/09/24 21:37
Crisis Consult Urgent
Reason for Consult: Alcohol abuse. Just wants to .
Comment: Threats of self harm to family
01/09/24 21:38
Add On- LAB Urgent
Tests Added?: Lipase
0.9% Sodium Chloride 1000 ml [Nss] 1,000 ml IV BOLUS
01/09/24 21:53
Ondansetron Injectable [Zofran] 4 mg IV NOW STA
Pantoprazole [Protonix IV] 40 mg IV NOW STA
01/09/24 21:54
Add On- LAB Urgent
Tests Added?: Liver enzymes
01/09/24 22:38
Lorazepam [Ativan] 1 mg .ROUTE .STK-MED ONE
01/09/24 22:40
Lorazepam [Ativan] 1 mg PO NOW STA
Abnormal Lab Results
01/09/24
18:55
MCH 32.8 H pg
(27.0-31.0)
Absolute Monos (auto) 0.7 H 10^3/uL
(0.1-0.6)
Immature Gran % 0.7 H %
(0-0.5)
Monocytes % 12.4 H %
(1.7-9.3)
Sodium 133 L mmol/L
(135-145)
Carbon Dioxide 20 L mmol/L
(22-30)
BUN 6 L mg/dl
(9-20)
Creatinine 0.5 L mg/dL
(0.7-1.3)
Glucose 172 H mg/dl
(70-99)
Alkaline Phosphatase 142 H U/L
(38-126)
Ur Barbiturates Screen Positive H
(Negative)
01/09/24 18:55
01/09/24 18:55
Sodium slightly low. carbon dioxide low. Glucose nonfasting. Urine positive for barbiturates, Alcohol 121
Vital Signs
Initial and Last Documented VS:
Initial Vital Signs
Temp Pulse Resp BP Pulse Ox
98.2 F 97 16 142/99 98
01/09/24 18:48 01/09/24 18:48 01/09/24 18:48 01/09/24 18:48 01/09/24 18:48
Last Documented Vital Signs
Temp Pulse Resp BP Pulse Ox
98.2 F 97 16 142/99 98
01/09/24 18:48 01/09/24 18:48 01/09/24 18:48 01/09/24 18:48 01/09/24 18:48
MDM/Problems Addressed
Differential Diagnosis Includes:
Alcohol acute, Suicidal thoughts
MDM/Problems Addressed:
This is a 58 year old male that is brought in by family after falling of the wagon. States that he was sober and then today he drank a 5th of Wirt. Patient was making comments to family and police that he just wanted to and that he was sorry.
Will get labs. IV fluids, and Crisis to see patient.
Patient was seen by Crisis and is willing to go inpatient voluntarily. Will discharge to crisis.
Chronic conditions affecting care: Psychiatric illness and Other (Alcoholic)
Acute Exacerbation and/or Progression of Chronic Illness: Psychiatric illness and Other (Alcoholic)
*Pulse Oximetry
Patient hypoxic: no
*EKG
Interpreted by ED Provider?: Yes
Heart Rate: 85
Rate: normal
Rhythm: sinus
[place]: left axis deviation
Interval: normal interval
QRS Pattern: normal QRS
Ischemia: no ischemia
*Conveyor Tender Interpretation
Rate: Conveyor Tender- N/A
*Critical Care Note
Total Time (30-74mins, 75-104mins- exclusive of procedures): Not Applicable
ED Attending Note
-
Portions of this chart may have been created with voice recognition software.� Occasional wrong word or��sound alike� substitutions may have occurred due to the inherent limitations of voice recognition software.
Discharge Plan
Departure
Patient Disposition: [facility]
Date of Disposition: 01/09/24
Time of Disposition: 23:17
Patient with high blood pressure during this ER visit?: Yes
Condition: Good
Covid-19: Not Applicable
Discharge Problem:
Alcohol abuse, Depression
Instructions: Depression, Adult (DC), Alcohol Use Disorder (DC), BLOOD PRESSURE
Prescriptions:
No Action
amlodipine 10 mg Tablet
10 mg PO DAILY
Hold Instructions: Restart when blood pressure greater than 140/90
Simponi 50 mg/0.5 mL Syringe
50 mg SC QMONTH
thiamine HCl (vitamin B1) 100 mg Tablet
100 mg PO BID Qty: 60 0RF
folic acid 1 mg Tablet
1 mg PO DAILY Qty: 30 0RF
baclofen 10 mg Tablet
5 mg PO TID Qty: 21 0RF
furosemide 20 mg Tablet
20 mg PO DAILY Qty: 30 0RF
metformin 500 mg Tablet
500 mg PO BIDWMEAL Qty: 60 0RF
atorvastatin 20 mg Tablet
20 mg PO DAILY Qty: 30 0RF
lisinopril 20 mg Tablet
20 mg PO DAILY Qty: 30 0RF
Activity Restrictions/Additional Instructions:
Please follow up as directed by Crisis.
Interventions
Interventions:
*Risk Screen - Suicide Last Done: 01/09/24 18:48
*General Assessment Last Done: 01/09/24 21:51
*Neglect/Abuse Screening Last Done: 01/09/24 18:48
ED- Fall Risk Assessment Last Done: 01/09/24 21:50
*ED COVID-19 Vaccine History Last Done: 01/09/24 18:48
ED- Neurological Assessment Last Done: 01/09/24 21:50
ED-Psychological Assessment Last Done: 01/09/24 21:50
Discharge Date and Time
Print Language: CITIZEN OF [place]
[2024-01-09] MEDS: ZOFRAN 4 MG IV (22:16)
[2024-01-09] MEDS: PROTONIX IV 40 MG IV (22:16)
[2024-01-09 22:20] LABS: ALT (SGPT) 25 U/L (0-50); AST (SGOT) 28 U/L (17-59); Albumin 4.3 g/dl (3.5-5.0); Alkaline Phosphatase 142 U/L (38-126); Lipase 196 U/L (23-300); Total Bilirubin 0.4 mg/dl (0.2-1.3); Total Protein 7.8 g/dl (6.3-8.2)
[2024-01-09] MEDS: ATIVAN 1 MG PO (22:41)
[2024-01-10 00:02] VITALS: BP 139/97
== END 2024-01-09 23:55 ==
LOC: EMR 18:41
PROVIDERS: Emergency Medicine; EMERGENCY PHYSICIAN Emergency Medicine; FAMILY PHYSICIAN Family Medicine
DX: F32.A Depression, unspecified (principal); F10.10 Alcohol abuse, uncomplicated; I10 Essential (primary) hypertension; Z87.891 Personal history of nicotine dependence
CPT/HCPCS: 99284; 96374; 96375; 96361; 80053; 80306; 82077; 83690; 85025; 93005

== ENCOUNTER 2024-01-10 08:22 | Emergency (ER) | payer SELFPAY ==
[2024-01-10 08:28] VITALS: BP 159/98
--- NOTE | 2024-01-10 09:09 | ED.GENMED ---
History of Present Illness
General
Chief Complaint: Withdrawal Symptoms
Source: patient and other (support worker)
Time Seen by Provider: 01/10/24 08:59
Travel History
Have you had any contact with someone who has COVID-19?: No
Do you have any symptoms of coronavirus? Fever > 100 degrees, chills, cough, shortness of breath, sore throat, loss of taste or smell, muscle aches, or headache?: No
History of Present Illness
History of Present Illness:
58-year-old male is with some early withdrawal symptoms. Patient was over at crisis waiting to be placed as a dual diagnosis for alcohol and depression. Was there overnight. This morning the gas worker was concerned that he seemed a little
jittery and might be an early withdrawal and was sent for further evaluation. Patient states he last drank yesterday around noon. Normally drinks 1/5 of bourbon a day. Complains of feeling jittery shaky tremulous some nausea no hallucinations.
Patient was recently admitted for alcohol withdrawal. He was discharged to rehabilitation which he left 3 days ago early.
Past History
Past History
ED Past Medical History: HTN, Hypercholesterolemia, NIDDM and Psychiatric (Anxiety)
ED Past Surgical History: None
Social History
Tobacco: Former smoker
Alcohol: Daily (was sober and then started drinking on 01/09/24)
Personal: Single
Living: alone
Review of Systems
Review of Systems
All Other Systems: Not applicable
Constitutional: Denies fever or chills
Respiratory: Reports no symptoms
Cardiac: Reports no symptoms
Phy Exam
Physical Exam
Physical Exam:
GENERAL: Alert and oriented in no apparent distress
EYE: Orbits normal.
NECK: Supple, no thyroid
ENT: Pharynx without erythema
CARDIAC: Regular rate and rhythm without any obvious murmurs.
LUNGS: Clear breath sounds,normal
ABDOMEN: Soft, without focal tenderness or distention
NEUROLOGICAL: Alert and oriented , grossly non-focal. No obvious tremors at rest.
SKIN: Warm and dry, no rash or lesion, no discoloration, skin intact.
MUSCULOSKELETAL: No edema,no deformity.Good color
PSYCH: Normal and appropriate interaction.
Scores
Withdrawal Assessment of Alcohol
Withdrawal Assessment Completed?: Yes
Nausea and Vomiting: Mild nausea with no vomiting
Tactile Disturbances: None
Tremor: Not visible, but can be felt fingertip to fingertip
Auditory Disturbances: Not present
Paroxysmal Sweats: No sweat visible
Visual Disturbances: Not present
Anxiety: Moderately anxious, or guarded, so anxiety is inferred
Headache, Fullness in Head: Not present
Agitation: Normal activity
Orientation and clouding of sensorium: Oriented and can do serial additions
Total CIWA Score: 6
Alcohol Withdrawal Medication Recommendation: Equal to MSAS Score 0-4. Monitor & re-assess q2hrs, NO MEDICATION NEEDED
Course
Orders/Labs/Results
Orders:
Orders
01/10/24 09:06
Cardiac Monitoring- Treatment ONCE
IV Insert/Care/Rem.- Treatment PRN
Pulse Ox/cont/shift [RESP] Stat
Quantity: 1
01/10/24 09:07
Lorazepam [Ativan] 1 mg IV NOW STA
01/10/24 10:02
Alcohol Urgent
Complete Blood Count/With Diff Urgent
Comprehensive Metabolic Panel Urgent
PTT Urgent
Prothrombin Time Urgent
01/10/24 10:09
1:1 Observation - Suicide/ Violent Behavior As Directed
01/10/24 10:33
COVID-19 Antigen Urgent
Source: Nasal Swab
01/10/24 10:54
Lorazepam [Ativan] 1 mg PO NOW STA
Abnormal Lab Results
01/10/24
10:02
RBC 4.50 L 10^6/uL
(4.70-6.10)
MCH 32.4 H pg
(27.0-31.0)
Absolute Monos (auto) 0.8 H 10^3/uL
(0.1-0.6)
Monocytes % 14.0 H %
(1.7-9.3)
Sodium 130 L mmol/L
(135-145)
BUN 6 L mg/dl
(9-20)
Creatinine 0.5 L mg/dL
(0.7-1.3)
Glucose 176 H mg/dl
(70-99)
01/10/24 10:02
01/10/24 10:02
Vital Signs
Initial and Last Documented VS:
Initial Vital Signs
Temp Pulse Resp BP Pulse Ox
98.1 F 90 16 159/98 98
01/10/24 08:28 01/10/24 08:28 01/10/24 08:28 01/10/24 08:28 01/10/24 08:28
Last Documented Vital Signs
Temp Pulse Resp BP Pulse Ox
98.1 F 85 16 113/82 98
01/10/24 08:28 01/10/24 17:02 01/10/24 17:02 01/10/24 17:02 01/10/24 17:02
*Critical Care Note
Total Time (30-74mins, 75-104mins- exclusive of procedures): Not Applicable
Update Note
Update Note:
1055.... Patient stable and nontoxic. No significant withdrawal at this time. Apparently is approved to go to [facility]. Will keep patient over here pending transfer. Will give a dose of oral Ativan although clinically not in significant
withdrawal at this time.
ED Attending Note
-
Portions of this chart may have been created with voice recognition software.� Occasional wrong word or��sound alike� substitutions may have occurred due to the inherent limitations of voice recognition software.
Discharge Plan
Departure
Patient Disposition: Psych Facility
Date of Disposition: 01/10/24
Time of Disposition: 10:53
Discharge Problem:
Mild alcohol withdrawal, Depression/suicidal ideation, Mild hyponatremia
Instructions: Hyponatremia (DC), Alcohol Withdrawal (DC), Alcohol Use Disorder (DC), BLOOD PRESSURE
Prescriptions:
No Action
amlodipine 10 mg Tablet
10 mg PO DAILY
Hold Instructions: Restart when blood pressure greater than 140/90
Simponi 50 mg/0.5 mL Syringe
50 mg SC QMONTH
thiamine HCl (vitamin B1) 100 mg Tablet
100 mg PO BID Qty: 60 0RF
folic acid 1 mg Tablet
1 mg PO DAILY Qty: 30 0RF
baclofen 10 mg Tablet
5 mg PO TID Qty: 21 0RF
furosemide 20 mg Tablet
20 mg PO DAILY Qty: 30 0RF
metformin 500 mg Tablet
500 mg PO BIDWMEAL Qty: 60 0RF
atorvastatin 20 mg Tablet
20 mg PO DAILY Qty: 30 0RF
lisinopril 20 mg Tablet
20 mg PO DAILY Qty: 30 0RF
Referrals:
Baltazar Landin MD [Family Provider] - Follow up in 5-7 days
Activity Restrictions/Additional Instructions:
Recommend a repeat sodium level in 5 to 7 days
Interventions
Interventions:
*Risk Screen - Suicide Last Done: 01/10/24 10:03
*General Assessment Last Done: 01/10/24 10:03
*Neglect/Abuse Screening Last Done: 01/10/24 10:03
ED- Fall Risk Assessment Last Done: 01/10/24 09:57
*ED COVID-19 Vaccine History Last Done: 01/10/24 08:28
*Nursing Disposition Last Done: 01/10/24 17:40
ED- Neurological Assessment Last Done: 01/10/24 09:57
ED-Psychological Assessment Last Done: 01/10/24 09:57
Discharge Date and Time
Discharge Date/Time: 01/10/24 17:40
Print Language: [place]
[2024-01-10 10:12] LABS: % Basophils 1.4 % (0-2); % Eosinophils 3.1 % (0-6); % Immature Granulocytes 0.4 % (0-0.5); % Lymphocytes 26.4 % (20.5-51.1); % Neutrophils 54.7 % (42.2-75.2); Absolute Basophils 0.1 10^3/uL (0-0.2); Absolute Eosinophils 0.2 10^3/uL (0-0.7); Absolute Lymphocytes 1.5 10^3/uL (1.2-3.4); Absolute Monocytes 0.8 10^3/uL (0.1-0.6); Absolute Neutrophils 3.1 10^3/uL (1.4-6.5); Hematocrit 40.3 % (39.0-52.0); Hemoglobin 14.6 g/dL (13.0-18.0); Mean Corp Hgb Conc. 36.2 g/dL (33.0-37.0); Mean Corpuscular Hgb 32.4 pg (27.0-31.0); Mean Corpuscular Volume 89.6 fL (80.0-94.0); Mean Platelet Volume 8.4 fL (7.4-10.4); Nucleated Red Blood Cells % 0 % (-); Platelet Count 307 10^3/uL (130-400); White Blood Cell Count 5.6 10^3/uL (4.8-10.8)
[2024-01-10] MEDS: ATIVAN 1 MG IV (10:12)
[2024-01-10 10:24] LABS: ALT (SGPT) 24 U/L (0-50); AST (SGOT) 27 U/L (17-59); Albumin 3.7 g/dl (3.5-5.0); Alkaline Phosphatase 121 U/L (38-126); Blood Urea Nitrogen 6 mg/dl (9-20); Calcium 8.9 mg/dl (8.4-10.2); Carbon Dioxide 22 mmol/L (22-30); Chloride 100 mmol/L (98-107); Estimated Creatinine Clearance > 125 ml/min; Glucose 176 mg/dl (70-99); Potassium 3.7 mmol/L (3.5-5.1); Sodium 130 mmol/L (135-145); Total Bilirubin 0.7 mg/dl (0.2-1.3); Total Protein 7.1 g/dl (6.3-8.2); eGFR > 60.00
[2024-01-10 10:28] LABS: Alcohol None Detected; INR 1.06; PT 13.8 Sec (11.4-14.6)
[2024-01-10 10:29] LABS: APTT 24.1 Sec (23.4-35.0)
--- NOTE | 2024-01-10 10:51 | EDRN ---
delay in note d/t pt care:
1020: This RN recieved a call from Crisis who request a COVID test be sent on pt as pt is accepted @ [facility]. COVID swab ordered, obtained, and sent. pt given meal tray.
[2024-01-10 10:53] LABS: COVID-19 Antigen Negative (Negative)
[2024-01-10] MEDS: ATIVAN 1 MG PO (11:03)
[2024-01-10 11:04] VITALS: BP 145/90
[2024-01-10 17:02] VITALS: BP 113/82
== END 2024-01-10 17:40 ==
LOC: EMR 08:22
PROVIDERS: EMERGENCY PHYSICIAN Emergency Medicine; FAMILY PHYSICIAN Family Medicine
DX: F10.939 Alcohol use, unspecified with withdrawal, unspecified (principal); F32.A Depression, unspecified; E87.1 Hypo-osmolality and hyponatremia; R45.851 Suicidal ideations; Z11.52 Encounter for screening for COVID-19; Z87.891 Personal history of nicotine dependence
CPT/HCPCS: 99285; 96374; 80053; 82077; 85025; 85610; 85730; 87811